=== PATIENT | female | born 1995 | race Two or more races ===

== ENCOUNTER → 2019-06-19 10:50 | Outpatient (BNVA) | payer SELFPAY | PROVIDERS: Family Provider Nurse Practitioner; PCP Family Medicine; Visit Provider Family Medicine | DX: N39.0 Urinary tract infection, site not specified (principal); R52 Pain, unspecified | CPT/HCPCS: 81003 ==

== ENCOUNTER 2019-06-27 03:42 | Emergency (ER) | payer SELFPAY ==
[2019-06-27 03:43] VITALS: BP 156/115; PULSE 100; RESP 16; TEMP 36.8; O2SAT 98; BMI 56.7
--- NOTE | 2019-06-27 03:49 | ED_ITS ---
Entered by Yvonne Block, acting as scribe for Ramin Paulino MD HPI - Female Genitourinary General: Chief complaint: Urogenital-Female Stated complaint: kidney pain Time Seen by Provider: 06/27/19 03:49 Source: patient Mode of arrival: ambulatory History of Present Illness: HPI Narrative: 23 y/o female presents to the ED with complaint of flank pain. Pt states she has had intermittent pain for over a week and constant pain for several days. She was seen at Urgent Care about a week ago and was placed on abx for a kidney infection. She states she has right sided flank pain that radiates down her right leg. She also has some abd discomfort, but she states that is not unusual for her. MD elicited complaint: flank pain Onset (ago): week(s) Location of symptoms: RLQ, low back and flank Severity: mild Consistency: progressively worsening Associated symptoms: Reports abdominal pain; Deny headache(s) or nausea Review of Systems Const: Denies: fever, chills, body aches or change in appetite Eyes: Denies: blurry vision or eye discomfort ENMT: Denies: throat pain or dental pain Card: Denies: chest pain Resp: Denies: shortness of breath GI: Reports: abdominal pain; Denies: nausea, vomiting or diarrhea : Denies: painful urination Musc: Reports: back pain and extremity pain; Denies: neck pain Skin/Breast: Denies: rash Neuro: Denies: headache Psych: Denies: depression Tom/Lymph: Denies: easy bruising All/Imm: Denies: hives [facility] ED PFSH: Social History Smoking and tobacco status: current every day smoker e-cigarettes Alcohol intake: current Alcohol intake frequency: holidays/special occasions only Physical Exam Const: COMMON NORMALS: no apparent distress and oriented x3 NUTRITIONAL APPEARANCE: obese HENMT: COMMON NORMALS: normocephalic and head/scalp atraumatic HEAD & SCALP: normocephalic and atraumatic Eye: COMMON NORMALS: PERRL and EOMs intact bilaterally PUPIL: Yes PERRL Neck/C-Spine: COMMON NORMALS: full ROM and supple Chest: COMMONS NORMALS: inspection of chest normal and palpation of chest normal Resp: COMMON NORMALS: normal respiratory effort, no retractions, no use of accessory muscles and clear to auscultation bilaterally AUSCULTATION: clear to auscultation bilaterally Cardio: COMMON NORMALS: regular rate, regular rhythm and no murmurs RATE: regular rate RHYTHM: regular rhythm GI: COMMON NORMALS: normal to inspection, nondistended, normoactive bowel sounds, soft to palpation, non-tender and no masses PALPATION: Yes soft Back/Pelvis: LUMBAR SPINE/LOWER BACK: Yes lumbar spinal tenderness (Right lower) Extremity: COMMON NORMALS: normal to inspection and full ROM Neuro: COMMON NORMALS: oriented x3, moves all extremities and no focal motor deficits Psych: COMMON NORMALS: mental status grossly normal, thought process normal, cooperative and speech normal SPEECH: Yes normal speech THOUGHT PROCESS: normal thought process Skin: COMMON NORMALS: no rashes or lesions noted and no wounds GENERAL SKIN EXAM: no rashes or lesions noted Course Vital Signs: Vital signs: Vital Signs Temperature 98.2 F 06/27/19 03:43 Pulse Rate 98 06/27/19 05:07 Respiratory Rate 16 06/27/19 05:07 Blood Pressure 144/117 06/27/19 05:07 Pulse Oximetry 94 06/27/19 05:07 MDM - Female MDM Narrative: Medical decision making narrative: Patient presents with low back pain with sciatica. She has no signs of kidney stone and urinalysis here was normal. Patient's blood work is normal as well. She had no CVA tenderness and no abdominal tenderness. Patient has no signs of pleural abscess. Will place patient on Robaxin and Naprosyn. Lab Data: Labs: Lab Results 06/27/19 06/27/19 06/27/19 Range/Units 03:55 03:55 04:01 WBC 11.3 H (4.0-10.0) 10^3/ uL RBC 5.17 (4.1-5.3) 10^6/u L Hgb 12.7 (11.5-15.3) g/dL Hct 39.7 (37.0-47.0) % MCV 76.8 L (81-99) fL MCH 24.6 L (28.0-34.0) pg MCHC 32.0 (30.0-36.0) g/dL RDW 14.1 (12.1-15.1) % Plt Count 327 (130-400) 10^3/c mm MPV 10.6 H (7.4-10.4) fL Neut % (Auto) 61.4 % Lymph % (Auto) 31.8 % [place] % (Auto) 5.5 % Eos % (Auto) 0.7 % Baso % (Auto) 0.3 % Neut # (Auto) 7.0 (1.8-7.7) 10^3/u L Lymph # (Auto) 3.6 (0.8-4.8) 10^3/u L [place] # (Auto) 0.6 (0.2-0.9) 10^3/u L Eos # (Auto) 0.1 (0.0-0.8) 10^3/u L Baso # (Auto) 0.0 (0.0-0.1) 10^3/u L Nucleated RBC % (a uto) 0 % Nucleated RBCs # 0.0 /100WBC Sodium (136-145) mmol/L Potassium (3.5-5.1) mmol/L Chloride (98-107) mmol/L Carbon Dioxide (22-29) mmol/L Anion Gap (5-19) BUN (6-20) mg/dL Creatinine (0.5-0.9) mg/dL GFR Calculation (90-130) mL/min Glucose (65-115) mg/dL Calcium (8.5-10.5) mg/dL Total Bilirubin (0.15-1.2) mg/dL AST (0-32) U/L ALT (0-33) U/L Alkaline Phosphata se (35-105) IU/L Total Protein (6.6-8.7) g/dL Albumin (3.5-5.2) g/dL Globulin (1.3-4.6) g/dL Lipase (13-60) U/L HCG, Qual Negative (Negative) Urine Color Yellow (Yellow) Urine Appearance Sl hazy (CLEAR) Urine pH 6.5 (5-7) Ur Specific Gravit y 1.020 (1.005-1.030) Urine Protein Neg (Negative) Urine Glucose (UA) Norm (Normal) Urine Ketones Negative (Negative) Urine Blood Neg (Negative) Urine Nitrate Negative (Negative) Urine Bilirubin Neg (NEGATIVE) Urine Urobilinogen Norm (Negative) mg/dL Ur Leukocyte Irasema ase 1+ H (Negative) Urine RBC 0-4 H (0-2) /hpf Urine WBC 5-10 H (0-5) /hpf Ur Squamous Epith Cells 5-10 H (0-5) Urine Bacteria 1+ H (NONE) 06/27/19 Range/Units 04:01 WBC (4.0-10.0) 10^3/ uL RBC (4.1-5.3) 10^6/u L Hgb (11.5-15.3) g/dL Hct (37.0-47.0) % MCV (81-99) fL MCH (28.0-34.0) pg MCHC (30.0-36.0) g/dL RDW (12.1-15.1) % Plt Count (130-400) 10^3/c mm MPV (7.4-10.4) fL Neut % (Auto) % Lymph % (Auto) % [place] % (Auto) % Eos % (Auto) % Baso % (Auto) % Neut # (Auto) (1.8-7.7) 10^3/u L Lymph # (Auto) (0.8-4.8) 10^3/u L [place] # (Auto) (0.2-0.9) 10^3/u L Eos # (Auto) (0.0-0.8) 10^3/u L Baso # (Auto) (0.0-0.1) 10^3/u L Nucleated RBC % (a uto) % Nucleated RBCs # /100WBC Sodium 141 (136-145) mmol/L Potassium 4.1 (3.5-5.1) mmol/L Chloride 104 (98-107) mmol/L Carbon Dioxide 26 (22-29) mmol/L Anion Gap 15.1 (5-19) BUN 14 (6-20) mg/dL Creatinine 1.0 H (0.5-0.9) mg/dL GFR Calculation 70.0 L (90-130) mL/min Glucose 99 (65-115) mg/dL Calcium 11.3 H (8.5-10.5) mg/dL Total Bilirubin 0.2 (0.15-1.2) mg/dL AST 19 (0-32) U/L ALT 24 (0-33) U/L Alkaline Phosphata se 82 (35-105) IU/L Total Protein 7.6 (6.6-8.7) g/dL Albumin 4.2 (3.5-5.2) g/dL Globulin 3.4 (1.3-4.6) g/dL Lipase 29 (13-60) U/L HCG, Qual (Negative) Urine Color (Yellow) Urine Appearance (CLEAR) Urine pH (5-7) Ur Specific Gravit y (1.005-1.030) Urine Protein (Negative) Urine Glucose (UA) (Normal) Urine Ketones (Negative) Urine Blood (Negative) Urine Nitrate (Negative) Urine Bilirubin (NEGATIVE) Urine Urobilinogen (Negative) mg/dL Ur Leukocyte Irasema ase (Negative) Urine RBC (0-2) /hpf Urine WBC (0-5) /hpf Ur Squamous Epith Cells (0-5) Urine Bacteria (NONE) Discharge Plan Discharge Patient Disposition: Home, Self-Care Clinical Impression: Low back pain Qualifiers: Chronicity: acute Back pain laterality: right Sciatica presence: with sciatica Sciatica laterality: sciatica of right side Qualified Code(s): M54.41 - Lumbago with sciatica, right side Condition: Stable Prescriptions: New Robaxin-750 750 mg tablet 750 mg PO Q6H Qty: 30 RF: 0 EC-Naprosyn 500 mg tablet,delayed release (DR/EC) 500 mg PO BID PRN (Reason: pain) Qty: 20 RF: 0 Discharge Orders: Discharge Order (Routine); Ordered 06/27/19 Ordered By: Ramin Paulino Referrals: Nahum Núñez FNP [Family Provider] - Cameron Salas [Primary Care Provider] - Discharge Diet: Advance as tolerated Discharge Activity: Resume usual activity Patient Instructions: Sciatica (ED), Lumbar Radiculopathy (ED), Piriformis Syndrome (ED) Coding Level of Care Code ED [employer] for Chg 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 The documentation recorded by the Umair douglas Ashley, accurately reflects the service I personally performed and the decisions made by Lora ellington Korby, MD Jun 27, 2019 03:42
--- NOTE | 2019-06-27 03:55 | PC.NURSE ---
patient states she was seen in a clinic and they told her she had an infection in her kidney and possible kidney stones a week ago. patient states that the pain and discomfort got worse today. Patient states that her right leg and back hurt, and it hurts when she pees. Patient states that she is peeing frequently but the amount of urine is not a lot.
[2019-06-27 04:00] VITALS: BP 166/94; PULSE 99; RESP 16; O2SAT 99
[2019-06-27 04:06] LABS: Basophils % 0.3 %; Eosinophils # 0.1 10^3/uL (0.0-0.8); Eosinophils % 0.7 %; Hematocrit 39.7 % (37.0-47.0); Hemoglobin 12.7 g/dL (11.5-15.3); Lymphocytes # 3.6 10^3/uL (0.8-4.8); Lymphocytes % 31.8 %; Mean Corpuscular Hemoglobin 24.6 pg (28.0-34.0); Mean Corpuscular Volume 76.8 fL (81-99); Mean Platelet Volume 10.6 fL (7.4-10.4); Monocytes # 0.6 10^3/uL (0.2-0.9); Monocytes % 5.5 %; Neutrophils % 61.4 %; Nucleated Red Blood Cells % 0 %; Platelet Count 327 10^3/cmm (130-400); Red Blood Count 5.17 10^6/uL (4.1-5.3); Red Cell Distribution Width 14.1 % (12.1-15.1); White Blood Count 11.3 10^3/uL (4.0-10.0)
[2019-06-27 04:09] LABS: HCG Qualitative Urine. Negative (Negative)
[2019-06-27 04:23] LABS: Alanine Aminotransferase 24 U/L (0-33); Albumin Level 4.2 g/dL (3.5-5.2); Alkaline Phosphatase 82 IU/L (35-105); Anion Gap 15.1 (5-19); Aspartate Amino Transferase 19 U/L (0-32); Blood Urea Nitrogen 14 mg/dL (6-20); Calcium 11.3 mg/dL (8.5-10.5); Carbon Dioxide 26 mmol/L (22-29); Chloride 104 mmol/L (98-107); Globulin 3.4 g/dL (1.3-4.6); Glucose 99 mg/dL (65-115); Lipase 29 U/L (13-60); Potassium 4.1 mmol/L (3.5-5.1); Sodium 141 mmol/L (136-145); Total Bilirubin 0.2 mg/dL (0.15-1.2); Total Protein 7.6 g/dL (6.6-8.7)
[2019-06-27 04:27] VITALS: RESP 16; O2SAT 98
[2019-06-27] MEDS: ondansetron 2 mg/ML SDV 2 mL 4 MG IVP (04:27)
[2019-06-27] MEDS: morphine 4 mg/mL SDV 1 mL IVP (04:27)
[2019-06-27 04:32] VITALS: BP 153/89; PULSE 103; RESP 16; O2SAT 98
[2019-06-27 05:01] LABS: Add Urine Microscopic? YES; Bilirubin Urine Neg (NEGATIVE); Blood Urine Neg (Negative); Glucose Urine UA Norm (Normal); Ketones Urine Negative (Negative); Leukocyte Esterase Urine 1+ (Negative); Nitrate Urine Negative (Negative); Protein Urine Neg (Negative); Urine Appearance SL Hazy (CLEAR); Urine Color Yellow (Yellow); Urobilinogen Urine Norm (Negative); pH Urine 6.5 (5-7)
[2019-06-27 05:02] LABS: RBC Urine 0-4 /hpf (0-2)
[2019-06-27 05:03] LABS: Add Urine Culture? No; Bacteria Urine 1+
[2019-06-27 05:07] VITALS: BP 144/117; PULSE 98; RESP 16; O2SAT 94
[2019-06-27] MEDS: dexamethasone 10 mg/mL INJ IVP (05:22)
[2019-06-27 05:26] VITALS: BP 154/103; PULSE 91; RESP 16; O2SAT 97
== END 2019-06-27 05:26 | disposition home or self-care (01) ==
PROVIDERS: Emergency Provider Emergency Medicine; Family Provider Nurse Practitioner; PCP Family Medicine
DX: M54.5 Low back pain (principal); E66.9 Obesity, unspecified; Z68.43 Body mass index [BMI] 50.0-59.9, adult; F17.210 Nicotine dependence, cigarettes, uncomplicated
CPT/HCPCS: 36415; 80053; 81001; 81025; 83690; 85025; 96374; 96375; 99283; J1100; J2270; J2405

== ENCOUNTER → 2019-08-02 13:02 | Outpatient (BNVA) | payer SELFPAY | PROVIDERS: Family Provider Nurse Practitioner; PCP Family Medicine; Visit Provider Family Medicine | DX: S93.492A Sprain of other ligament of left ankle, initial encounter (principal); W18.40XA Slipping, tripping and stumbling without falling, unspecified, initial encounter; F17.290 Nicotine dependence, other tobacco product, uncomplicated; Z71.89 Other specified counseling | CPT/HCPCS: 73610 ==

== ENCOUNTER 2019-10-29 04:45 | Emergency (ER) | payer SELFPAY ==
[2019-10-29 04:55] VITALS: BP 154/84; PULSE 112; RESP 20; TEMP 36.7; O2SAT 98; BMI 56.7
--- NOTE | 2019-10-29 05:20 | W.ED.FEMALGU ---
HPI - Female Genitourinary General: Chief complaint: Urogenital-Female Stated complaint: LRQ BACK PAIN Time Seen by Provider: 10/29/19 05:07 History of Present Illness: HPI Narrative: 24-year-old female who woke up with right-sided flank and low back pain. She has had mild dysuria. She denies fever. She says she has been nauseated. She has a history of kidney infection. MD elicited complaint: dysuria and flank pain Location of symptoms: low back and flank (Right) Severity: moderate Female Urogenital Radiation: Non-Radiating Quality of pain: cramping and sharp Consistency: constant Vaginal discharge: none Vaginal bleeding: none Urinary symptoms: Dysuria and Flank Pain Relieving factors: none Associated symptoms: Reports nausea; Deny fevers/chills, headache(s) or vaginal discharge Patient : No Review of Systems Const: Denies: fever(s) or chills ENMT: Denies: swelling of lips/tongue or sinus pain Card: Denies: chest pain, palpitations or irregular heart rhythm Resp: Denies: dyspnea, non-productive cough or wheezing GI: Reports: nausea : Denies: vaginal discharge Musc: Reports: back pain; Denies: neck pain or joint redness Skin/Breast: Denies: rash Neuro: Denies: headache(s), dizziness or vertigo Psych: Denies: anxiety PFSH ED PFSH: Social History Smoking and tobacco status: current every day smoker e-cigarettes Alcohol intake: current Alcohol intake frequency: holidays/special occasions only Physical Exam Const: GENERAL APPEARANCE: well developed ORIENTATION/CONSCIOUSNESS: Yes oriented to person, Yes oriented to place and Yes oriented to time HENMT: COMMON NORMALS: normocephalic, external ears normal and Normal external nose present HEAD & SCALP: normocephalic FACE & SINUS: normal facial exam NOSE: Normal external nose present and No nasal discharge present EXTERNAL EAR: Yes external ears normal MOUTH: tongue normal Eye: COMMON NORMALS: EOMs intact bilaterally and conjunctivae normal EYELID: eyelids normal CONJUNCTIVA: Yes conjunctivae normal Neck/C-Spine: GENERAL: No tracheal deviation Chest: COMMONS NORMALS: normal inspection of the chest CHEST: No tenderness Resp: COMMON NORMALS: clear to auscultation bilaterally EFFORT & INSPECTION: No tachypneic, No respiratory distress, No retractions, No uses accessory muscles and No tracheal deviation AUSCULTATION: clear to auscultation bilaterally, no rhonchi, no wheezes and lung sounds not diminished Cardio: COMMON NORMALS: regular rate and regular rhythm RATE: regular rate RHYTHM: regular rhythm HEART SOUNDS: no murmurs PERIPHERAL PULSES: radial pulses present GI: INSPECTION: No abdominal distension AUSCULTATION: No Hyperactive bowel sounds present and No Hypoactive bowel sounds present PALPATION: No Guarding due to palpation present (GI) and No Rigid due to palpation PERCUSSION: no dullness to percussion and no tympanic to percussion : BLADDER/KIDNEY EXAM: Yes CVA tenderness on the right Back/Pelvis: GENERAL BACK: Yes CVA tenderness Neuro: SENSORIUM/ORIENTATION: Yes oriented to person, Yes oriented to place and Yes oriented to time Psych: COMMON NORMALS: mental status grossly normal Skin: COMMON NORMALS: no rashes or lesions noted GENERAL SKIN EXAM: no rashes or lesions noted Course Vital Signs: Vital signs: Vital Signs Temperature 98.1 F 10/29/19 04:55 Pulse Rate 85 10/29/19 06:22 Respiratory Rate 20 H 10/29/19 06:22 Blood Pressure 119/99 10/29/19 06:22 Pulse Oximetry 99 10/29/19 06:22 MDM - Female MDM Narrative: Medical decision making narrative: 24-year-old female with a history of pyelonephritis in the past. She presents with right-sided flank and back pain. She has some mild dysuria. She does not have a fever. She has not been vomiting. She is received a fluid bolus, and is getting IV Rocephin for a urinary tract infection by urinalysis. She has a white blood cell count of 12 with no left shift. Her renal function is normal. CT stone protocol is pending looking for renal abscess versus stone. If the CT does not reveal 1 of these, she will be sent home on cefdinir for coverage, pain and antiemetic medication. Lab Data: Labs: Lab Results 10/29/19 10/29/19 10/29/19 Range/Units 04:55 05:30 05:30 WBC 11.9 H (4.0-10.0) 10^3/ uL RBC 4.89 (4.1-5.3) 10^6/u L Hgb 11.4 L (11.5-15.3) g/dL Hct 37.5 (37.0-47.0) % MCV 76.7 L (81-99) fL MCH 23.3 L (28.0-34.0) pg MCHC 30.4 (30.0-36.0) g/dL RDW 15.9 H (12.1-15.1) % Plt Count 344 (130-400) 10^3/c mm MPV 11.0 H (7.4-10.4) fL Neut % (Auto) 66.1 % Lymph % (Auto) 28.0 % [place] % (Auto) 4.4 % Eos % (Auto) 0.8 % Baso % (Auto) 0.3 % Neut # (Auto) 7.8 H (1.8-7.7) 10^3/u L Lymph # (Auto) 3.3 (0.8-4.8) 10^3/u L [place] # (Auto) 0.5 (0.2-0.9) 10^3/u L Eos # (Auto) 0.1 (0.0-0.8) 10^3/u L Baso # (Auto) 0.0 (0.0-0.1) 10^3/u L Nucleated RBC % (a uto) 0 % Nucleated RBCs # 0.0 /100WBC Sodium 139 (136-145) mmol/L Potassium 3.5 (3.5-5.1) mmol/L Chloride 105 (98-107) mmol/L Carbon Dioxide 23 (22-29) mmol/L Anion Gap 14.5 (5-19) BUN 9 (6-20) mg/dL Creatinine 0.6 (0.5-0.9) mg/dL GFR Calculation 125.0 (90-130) mL/min Glucose 124 H (65-115) mg/dL Calculated Osmolal ity 285 (285-295) mOsm/k g Calcium 10.1 (8.5-10.5) mg/dL Total Bilirubin 0.2 (0.15-1.2) mg/dL AST 21 (0-32) U/L ALT 28 (0-33) U/L Alkaline Phosphata se 72 (35-105) IU/L Total Protein 6.7 (6.6-8.7) g/dL Albumin 3.9 (3.5-5.2) g/dL Globulin 2.8 (1.3-4.6) g/dL HCG, Qual (Negative) Urine Color Yellow (Yellow) Urine Appearance Hazy A (CLEAR) Urine pH 6.5 (5-7) Ur Specific Gravit y 1.020 (1.005-1.030) Urine Protein Neg (Negative) Urine Glucose (UA) Norm (Normal) Urine Ketones Negative (Negative) Urine Blood Neg (Negative) Urine Nitrate Negative (Negative) Urine Bilirubin Neg (NEGATIVE) Urine Urobilinogen Norm (Negative) mg/dL Ur Leukocyte Irasema ase 2+ H (Negative) Urine RBC 0-4 H (0-2) /hpf Urine WBC 25-40 H (0-5) /hpf Ur Squamous Epith Cells 15-25 H (0-5) Amorphous Sediment 1+ Urine Bacteria 2+ H (NONE) 07/05/20 Range/Units 05:30 WBC (4.0-10.0) 10^3/ uL RBC (4.1-5.3) 10^6/u L Hgb (11.5-15.3) g/dL Hct (37.0-47.0) % MCV (81-99) fL MCH (28.0-34.0) pg MCHC (30.0-36.0) g/dL RDW (12.1-15.1) % Plt Count (130-400) 10^3/c mm MPV (7.4-10.4) fL Neut % (Auto) % Lymph % (Auto) % [place] % (Auto) % Eos % (Auto) % Baso % (Auto) % Neut # (Auto) (1.8-7.7) 10^3/u L Lymph # (Auto) (0.8-4.8) 10^3/u L [place] # (Auto) (0.2-0.9) 10^3/u L Eos # (Auto) (0.0-0.8) 10^3/u L Baso # (Auto) (0.0-0.1) 10^3/u L Nucleated RBC % (a uto) % Nucleated RBCs # /100WBC Sodium (136-145) mmol/L Potassium (3.5-5.1) mmol/L Chloride (98-107) mmol/L Carbon Dioxide (22-29) mmol/L Anion Gap (5-19) BUN (6-20) mg/dL Creatinine (0.5-0.9) mg/dL GFR Calculation (90-130) mL/min Glucose (65-115) mg/dL Calculated Osmolal ity (285-295) mOsm/k g Calcium (8.5-10.5) mg/dL Total Bilirubin (0.15-1.2) mg/dL AST (0-32) U/L ALT (0-33) U/L Alkaline Phosphata se (35-105) IU/L Total Protein (6.6-8.7) g/dL Albumin (3.5-5.2) g/dL Globulin (1.3-4.6) g/dL HCG, Qual Negative (Negative) Urine Color (Yellow) Urine Appearance (CLEAR) Urine pH (5-7) Ur Specific Gravit y (1.005-1.030) Urine Protein (Negative) Urine Glucose (UA) (Normal) Urine Ketones (Negative) Urine Blood (Negative) Urine Nitrate (Negative) Urine Bilirubin (NEGATIVE) Urine Urobilinogen (Negative) mg/dL Ur Leukocyte Irasema ase (Negative) Urine RBC (0-2) /hpf Urine WBC (0-5) /hpf Ur Squamous Epith Cells (0-5) Amorphous Sediment Urine Bacteria (NONE) Discharge Plan Discharge Patient Disposition: Home, Self-Care Clinical Impression: Pyelonephritis Condition: Stable Prescriptions: New cefdinir 300 mg capsule 300 mg PO Q12H 7 Days Qty: 14 RF: 0 Zofran 4 mg tablet 4 mg PO Q6H PRN (Reason: nausea and vomiting) Qty: 10 RF: 0 [place] 5-325 mg tablet 1 tab PO Q6H PRN (Reason: pain) Qty: 10 RF: 0 No Action omeprazole 40 mg capsule,delayed release(DR/EC) 40 mg PO DAILY 84 Days Qty: 90 RF: 0 sertraline [Zoloft] 100 mg tablet 100 mg PO DAILY Qty: 30 RF: 2 trazodone 50 mg tablet 100 mg PO .HS Qty: 60 RF: 1 EC-Naprosyn 500 mg tablet,delayed release (DR/EC) 500 mg PO BID PRN (Reason: pain) Qty: 20 RF: 0 Discharge Orders: Discharge Order (Routine); Ordered 10/29/19 Ordered By: Og Juárez Referrals: Cameron Salas [Primary Care Provider] - 4-7 days Discharge Diet: Advance as tolerated Discharge Activity: Increase activity as tolerated Patient Instructions: Acute Pyelonephritis (ED) Activity Restrictions/Additional Instructions: Return for continued fever greater than 100 despite 2-3 doses of antibiotics, vomiting liquids or medications, uncontrolled pain, other concerning symptoms. Medications as directed. Coding Level of Care Code ED Supervisor [employer] for Chg 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
--- NOTE | 2019-10-29 05:21 | CTR_ITS ---
PROCEDURE INFORMATION: Exam: CT Abdomen And Pelvis Without Contrast Exam date and time: 10/29/2019 5:38 AM Age: 24 years old Clinical indication: Abdominal pain; Flank; Right; Additional info: R flank pain TECHNIQUE: Imaging protocol: Computed tomography of the abdomen and pelvis without contrast. Radiation optimization: All CT scans at this facility use at least one of these dose optimization techniques: automated exposure control; mA and/or kV adjustment per patient size (includes targeted exams where dose is matched to clinical indication); or iterative reconstruction. COMPARISON: No relevant prior studies available. RADIATION DOSE METRICS: Total DLP (mGy-cm): 1935.89 FINDINGS: Lungs: The lung bases are clear. Liver: Unremarkable. Gallbladder and bile ducts: No definite gallbladder abnormality by CT. Ultrasound could be more sensitive for detecting gallstones, if clinically needed. No biliary tree dilation. Pancreas: Unremarkable. Spleen: Unremarkable. Adrenals: Unremarkable. Kidneys and ureters: No hydronephrosis of either kidney. No visible renal or ureteral calculus. No perinephric fluid. Normal appearance of the kidneys on noncontrast CT does not entirely exclude the diagnosis of acute pyelonephritis. Please correlate with clinical and laboratory evaluation. Stomach and bowel: There are no CT findings to strongly suggest diverticulitis. Appendix: The appendix is visualized and appears normal. Intraperitoneal space: No free air, generalized ascites, or bowel distention. Vasculature: No evidence for abdominal aortic aneurysm. Lymph nodes: No retroperitoneal adenopathy. Bladder: Possibly some mild diffuse urinary bladder wall thickening. While nonspecific, this could indicate evidence for cystitis. Please correlate clinically. No visible calculus in the urinary bladder. Reproductive: Small amount of cul-de-sac fluid. No definite abnormal ovarian/adnexal cyst or mass by CT. Bones/joints: No significant acute finding. Soft tissues: No significant acute finding. CT/CT kidney stone [id number] IMPRESSION: 1. No hydronephrosis of either kidney. No visible renal or ureteral calculus. 2. No perinephric fluid, see above discussion. 3. Possible mild urinary bladder wall thickening, see above. 4. Normal appendix. 5. Unremarkable gallbladder by CT. 6. Small amount of cul-de-sac fluid. No definite abnormal ovarian/adnexal cyst or mass by CT. 7. Other findings discussed above. Radiation Dose CTDIVOL = (mGy): DLP = 1935.89 (mGy-cm)
[2019-10-29 05:30] VITALS: RESP 19
[2019-10-29] MEDS: morphine 4 mg/mL SDV 1 mL IVP (05:30)
[2019-10-29] MEDS: sodium chloride 0.9% 1,000 ML 999 ML IV (05:32)
[2019-10-29 05:33] VITALS: BP 169/81; PULSE 104; RESP 19; O2SAT 98
[2019-10-29 05:43] LABS: Add Urine Microscopic? YES; Bilirubin Urine Neg (NEGATIVE); Blood Urine Neg (Negative); Glucose Urine UA Norm (Normal); Ketones Urine Negative (Negative); Leukocyte Esterase Urine 2+ (Negative); Nitrate Urine Negative (Negative); Protein Urine Neg (Negative); Urine Appearance Hazy (CLEAR); Urine Color Yellow (Yellow); Urobilinogen Urine Norm (Negative); pH Urine 6.5 (5-7)
[2019-10-29 05:44] LABS: RBC Urine 0-4 /hpf (0-2)
[2019-10-29 05:45] LABS: Add Urine Culture? No; Amorphous Sediment Urine 1+; Bacteria Urine 2+; Squamous Epithelial Cell Urine 15-25 (0-5); WBC Urine 25-40 /hpf (0-5)
[2019-10-29 05:47] LABS: Basophils % 0.3 %; Eosinophils # 0.1 10^3/uL (0.0-0.8); Eosinophils % 0.8 %; Hematocrit 37.5 % (37.0-47.0); Hemoglobin 11.4 g/dL (11.5-15.3); Lymphocytes # 3.3 10^3/uL (0.8-4.8); Mean Corpuscular HGB Conc 30.4 g/dL (30.0-36.0); Mean Corpuscular Hemoglobin 23.3 pg (28.0-34.0); Mean Corpuscular Volume 76.7 fL (81-99); Monocytes # 0.5 10^3/uL (0.2-0.9); Monocytes % 4.4 %; Neutrophils # 7.8 10^3/uL (1.8-7.7); Neutrophils % 66.1 %; Nucleated Red Blood Cells % 0 %; Platelet Count 344 10^3/cmm (130-400); Red Blood Count 4.89 10^6/uL (4.1-5.3); Red Cell Distribution Width 15.9 % (12.1-15.1); White Blood Count 11.9 10^3/uL (4.0-10.0)
[2019-10-29 05:59] LABS: HCG, Serum Qual Negative (Negative)
[2019-10-29] MEDS: cefTRIAXone 1,000 MG in sodium chloride 0.9% (plus) 50 ML 100 MG IV (06:04)
[2019-10-29 06:05] LABS: Alanine Aminotransferase 28 U/L (0-33); Albumin Level 3.9 g/dL (3.5-5.2); Alkaline Phosphatase 72 IU/L (35-105); Anion Gap 14.5 (5-19); Aspartate Amino Transferase 21 U/L (0-32); Blood Urea Nitrogen 9 mg/dL (6-20); Calcium 10.1 mg/dL (8.5-10.5); Carbon Dioxide 23 mmol/L (22-29); Chloride 105 mmol/L (98-107); Globulin 2.8 g/dL (1.3-4.6); Glucose 124 mg/dL (65-115); Osmolality Calculated 285 mOsm/kg (285-295); Potassium 3.5 mmol/L (3.5-5.1); Sodium 139 mmol/L (136-145); Total Bilirubin 0.2 mg/dL (0.15-1.2); Total Protein 6.7 g/dL (6.6-8.7)
[2019-10-29 06:22] VITALS: BP 119/99; PULSE 85; RESP 20; O2SAT 99
[2019-10-29] MEDS: ketorolac 30 mg/mL INJ IVP (06:39)
[2019-10-29 06:50] LABS: C Reactive Protein 8.4 mg/L (0.0-4.9)
[2019-10-29 07:31] VITALS: BP 149/80; PULSE 85; RESP 18; O2SAT 97
== END 2019-10-29 07:20 | disposition home or self-care (01) ==
PROVIDERS: Emergency Provider Emergency Medicine; PCP Family Medicine
DX: N12 Tubulo-interstitial nephritis, not specified as acute or chronic (principal); F17.290 Nicotine dependence, other tobacco product, uncomplicated
CPT/HCPCS: 12345; 74176; 80053; 81001; 81003; 84703; 85025; 86140; 96360; 96361; 96365; 96375; 99283; J0696; J1885; J2270; J7030

== ENCOUNTER 2020-01-10 02:00 | Emergency (ER) | payer OTHER, SELFPAY ==
[2020-01-10 02:03] VITALS: BP 178/93; PULSE 86; RESP 17; TEMP 36.3; O2SAT 97; BMI 56.7
--- NOTE | 2020-01-10 02:08 | XR_ITS ---
WS: [id number] EXAM: AP CHEST: PORTABLE UPRIGHT DATE OF EXAM: 01/10/2020, 0222 hours COMPARISON: NONE HISTORY: Patient is 24 years old with cough, fever for the last 2 days. FINDINGS: The cardiac silhouette is normal in size. The mediastinal contours are normal. The pulmonary vas cularity is normal. The lungs are clear of infiltrate. There is no effusion or pneumothorax. No ac ambreen bony abnormality is seen. XR/XR chest 1V portable [id number] IMPRESSION: No acute pulmonary disease.
--- NOTE | 2020-01-10 02:08 | W.ED.GENADLT ---
HPI - General Adult General: Chief complaint: General Medical Stated complaint: covid symptoms Time Seen by Provider: 01/10/20 02:08 History of Present Illness: HPI narrative: Patient is a 24-year-old female comes to the ED with cough, sore throat, nasal drainage and congestion and fever. Patient denies any asthma or other lung issues. Symptoms started approximately 3 days ago. Denies fever she had at home was 100.5. Patient is also having some nausea and episodes of emesis as well. She currently has some nausea while here in the ED. Patient had contact with a positive COVID-19 patient. Associated symptoms: Reports nausea and vomiting; Deny chest pain, dyspnea, headache(s), rash or palpitations Review of Systems Const: Reports: fever(s); Denies: chills or fatigue Eyes: Denies: change in vision or eye discomfort ENMT: Reports: throat pain, nasal discharge and nasal congestion; Denies: odynophagia Card: Denies: chest pain, palpitations, edema, swelling of feet/ankles, dyspnea on exertion or orthopnea Resp: Reports: non-productive cough; Denies: dyspnea or productive cough GI: Reports: nausea and vomiting; Denies: abdominal pain, diarrhea, constipation or hematochezia : Denies: flank pain, dysuria or hematuria Musc: Denies: neck pain, back pain or extremity swelling Skin/Breast: Denies: rash or new lesions Neuro: Denies: headache(s), numbness in extremities or weakness in extremities PFS ED PFSH: Social History Smoking and tobacco status: current every day smoker e-cigarettes Alcohol intake: current Alcohol intake frequency: holidays/special occasions only Female Reproductive History: Date of last menstrual period: 01/03/20 Physical Exam Const: COMMON NORMALS: no acute distress, patient oriented x3, healthy appearing and alert GENERAL APPEARANCE: cooperative and comfortable NUTRITIONAL APPEARANCE: obese morbidly obese HENMT: COMMON NORMALS: normocephalic and Normal external nose present HEAD & SCALP: normocephalic NOSE: Normal external nose present MOUTH: Normal oral and palatal mucosa present THROAT: uvula midline, abnormal tonsil bilateral hypertrophy 2+ and posterior oropharynx abnormal erythema; no exudates Eye: COMMON NORMALS: Equal, round and reactive pupils present and conjunctivae normal CONJUNCTIVA: Yes conjunctivae normal PUPIL: Yes Equal, round and reactive pupils present Neck/C-Spine: COMMON NORMALS: supple GENERAL: Yes normal visual inspection Resp: COMMON NORMALS: normal respiratory effort, No retractions, No use of accessory muscles and clear to auscultation bilaterally AUSCULTATION: clear to auscultation bilaterally Cardio: COMMON NORMALS: regular rate, regular rhythm, S1 normal heart sound present, S2 normal heart sound present, No gallops present (Cardio), No clicks present (Cardio), No murmurs present (Cardio) and Peripheral pulses 2+ throughout RATE: regular rate RHYTHM: regular rhythm HEART SOUNDS: S1 normal heart sound present and S2 normal heart sound present PERIPHERAL PULSES: Peripheral pulses 2+ throughout GI: COMMON NORMALS: Normal to inspection, nondistended, normoactive bowel sounds present, Soft to palpation, non-tender and no masses PALPATION: Yes Soft to palpation : COMMON NORMALS: Yes no CVA tenderness BLADDER/KIDNEY EXAM: Yes no CVA tenderness Back/Pelvis: COMMON NORMALS: no CVA tenderness Extremity: COMMON NORMALS: normal to inspection Neuro: COMMON NORMALS: patient oriented x3 and moves all extremities SENSORIUM/ORIENTATION: Yes alert Skin: COMMON NORMALS: no rashes or lesions noted GENERAL SKIN EXAM: no rashes or lesions noted and dry skin Course Reevaluation(s): Reevaluation #1: Went and saw patient after she had received Zofran IM. She reports improving nausea and is able to keep p.o. fluids down. Time: 03:05 Vital Signs: Vital signs: Vital Signs Temperature 97.3 F L 01/10/20 02:03 Pulse Rate 86 01/10/20 02:03 Respiratory Rate 17 01/10/20 02:03 Blood Pressure 178/93 01/10/20 02:03 Pulse Oximetry 97 01/10/20 02:03 MDM - General Adult MDM Narrative: Medical decision making narrative: Patient is a 24-year-old female comes to the ED with nasal congestion, cough, fever, sore throat, nausea vomiting. Symptoms started 3 days ago the patient says she has had contact with positive COVID patient. Physical exam is unremarkable patient appears to be in no acute distress or pain. Lungs are clear to auscultation bilaterally. Chest x-ray showed no acute lung findings or infiltrates. Strep test was negative. COVID testing was performed and pending results. Patient was given IM Zofran while here in the ED and nausea improved and she was able to keep p.o. fluids down. Patient discharged and told to self quarantine for the next 3 to possibly 12 days pending COVID testing results. I told patient to contact [facility] [place] in the next 2 to 3 days to find out COVID test results. Symptom management and take prescribed Zofran as needed for nausea. Drink plenty of fluids and stay hydrated. Tylenol or ibuprofen for fevers. Return to ED precautions given. Patient understood agree with plan. Lab Data: Attestation: I reviewed the patient's lab results. Lab results narrative: Strep test negative. Labs: Lab Results 01/10/20 Range/Units 02:37 Group A Strep Rapi d Negative (Negative) Imaging Data^: CXR: Attestation: I personally reviewed and interpreted this imaging study as follows: My impression: Chest x-ray showed no acute lung findings or infiltrates seen. Pending radiology report. Discharge Plan Discharge Patient Disposition: Home Clinical Impression: URI with cough and congestion, Encounter for screening laboratory testing for COVID-19 virus Condition: Stable Prescriptions: New ondansetron 4 mg tablet,disintegrating 4 mg PO Q8H Qty: 20 RF: 0 No Action omeprazole 40 mg capsule,delayed release(DR/EC) 40 mg PO DAILY 84 Days Qty: 90 RF: 0 sertraline [Zoloft] 100 mg tablet 100 mg PO DAILY Qty: 30 RF: 2 trazodone 50 mg tablet 100 mg PO .HS Qty: 60 RF: 1 Zofran 4 mg tablet 4 mg PO Q6H PRN (Reason: nausea and vomiting) Qty: 10 RF: 0 Spring 5-325 mg tablet 1 tab PO Q6H PRN (Reason: pain) Qty: 10 RF: 0 EC-Naprosyn 500 mg tablet,delayed release (DR/EC) 500 mg PO BID PRN (Reason: pain) Qty: 20 RF: 0 Discharge Orders: Discharge Order (Routine); Ordered 01/10/20 Ordered By: Juanjose Barnes Referrals: Cameron Salas [Primary Care Provider] - Discharge Diet: Advance as tolerated Discharge Activity: Increase activity as tolerated Patient Instructions: Upper Respiratory Infection (ED), Viral Syndrome (ED), Cold Symptoms (ED) Activity Restrictions/Additional Instructions: Follow-up with medical provider as directed in 7-10 days. Take ibuprofen or Tylenol as needed for fevers. Take Zofran as needed for nausea and drink plenty of fluids and stay hydrated. Self quarantine for the next 3 days or up to 12 days pending COVID test results. Contact [facility] in the next 2 to 3 days to find out COVID testing results. Symptom management and take [id number] cold medications to help with nasal congestion and cough. Return to the ER or your medical provider if condition worsens. Please read and understand discharge instructions. If any questions, please ask. 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
[2020-01-10] MEDS: ondansetron 2 mg/ML SDV 2 mL 4 MG IM (02:41)
[2020-01-10 03:10] LABS: Rapid Strep A Test Negative (Negative)
[2020-01-10 03:35] VITALS: BP 143/87; PULSE 76; RESP 18; O2SAT 98
[2020-01-11 20:47] LABS: Quest SARS-CoV-2 RNA NOT DETECTED (NOT DETECTED)
--- NOTE | 2020-01-12 08:43 | PC.NURSE ---
Pt called and notified of negative COVID result.
== END 2020-01-10 03:37 | disposition home or self-care (01) ==
PROVIDERS: Emergency Provider Physician Assistant; PCP Family Medicine
DX: J06.9 Acute upper respiratory infection, unspecified (principal); F17.290 Nicotine dependence, other tobacco product, uncomplicated; Z11.59 Encounter for screening for other viral diseases
CPT/HCPCS: 12345; 71045; 87081; 87635; 87880; 96372; 99282; 99283; J2405

== ENCOUNTER 2020-05-06 00:40 | Emergency (ER) | payer SELFPAY ==
[2020-05-06 00:43] VITALS: BP 158/84; PULSE 90; RESP 18; TEMP 36.2; O2SAT 100; BMI 56.7
--- NOTE | 2020-05-06 00:53 | XRR_ITS ---
PROCEDURE INFORMATION: Exam: XR Chest, 2 Views Exam date and time: 05/06/2020 1:06 AM Age: 24 years old Clinical indication: Cough; Additional info: Cough and congestion TECHNIQUE: Imaging protocol: XR of the chest Views: 2 views. COMPARISON: CR XR chest 1V portable [id number] 01/10/2020 2:14 AM FINDINGS: Lungs: Unremarkable. No consolidation. Pleural space: Unremarkable. No pleural effusion. No pneumothorax. Heart/Mediastinum: Unremarkable. No cardiomegaly. Bones/joints: Unremarkable. XR/XR chest 2V* [id number] IMPRESSION: No acute findings.
--- NOTE | 2020-05-06 01:10 | ECG_ITS ---
[facility] Test Date: 2020-05-06 Pat Name: Shoaib Lang Department: Room: Gender: Female Store Leader: : 1995 Requested By: Carlyn Aldridge Order Number: [id number] Santy MD: Mervat Ceja M.D. Measurements Intervals [place] Rate: 94 P: 36 MA: 180 QRS: 13 QRSD: 118 T: 3 QT: 349 QTc: 437 Interpretive Statements SINUS RHYTHM MODERATE INTRAVENTRICULAR CONDUCTION DELAY [110+ ms QRS DURATION] MINIMAL VOLTAGE CRITERIA FOR LVH, CONSIDER NORMAL VARIANT [MEETS CRITERIA IN ONE OF: R(aVL), S(V1), R(V5), R(V5/V6)+S(V1)] NONSPECIFIC ST ELEVATION [0.05+ mV ST ELEVATION] No previous ECG available for comparison Electronically Signed On 05-06-2020 20:31:53 POLICEWOMAN by Mervat Ceja M.D. [id number]
--- NOTE | 2020-05-06 01:12 | W.ED.CHESTPA ---
HPI - Chest Pain General: Chief Complaint: Upper Respiratory Infection Stated Complaint: sharp pain in chest. white thing in throat w/pain Time Seen by Provider: 05/06/20 00:44 History of Present Illness: HPI narrative: 24 year old female presents to the ED with complaints of sharp chest pain in the middle of her chest x 7 days, has increased in frequency, does not radiate, has not attempted OTC use of medication for the pain. Reports onset of cough 2 days ago, non-productive. She denies fever or chills, denies n/v/d - states intake of ETOH < 24 hours with increased pain in the chest. She denies heartburn or GI symptoms; yet reports abdominal pain with intake of ETOH. Denies abdominal pain upon exam. Reports stopped sertraline, trazodone and omeprazole several months ago. MD complaint: chest pain Onset (ago): day(s) (7) Timing of current episode: constant and increasing Prior episodes: Yes Onset: other (taking deep breath in) Pain location: epigastric Pain radiation: none Severity: moderate Quality: sharp Relieving factors: nothing Exacerbating factors: nothing Context: other (ETOH intake) Associated symptoms: Deny abdominal pain, diaphoresis, dyspnea, fever(s), nausea, palpitations or vomiting Treatment prior to arrival: none Review of Systems General: Reports: 10 or more systems reviewed and unremarkable except in HPI and below Const: Denies: fever(s), chills, body aches, fatigue, malaise or diaphoresis Eyes: Denies: blurry vision or eye redness ENMT: Reports: other; Denies: throat pain, uvular edema, dental pain, disequilibrium, nasal discharge or nasal congestion Card: Reports: chest pain; Denies: palpitations, irregular heart rhythm, lightheadedness, dyspnea on exertion or orthopnea Resp: Reports: non-productive cough and pain on inspiration; Denies: dyspnea, productive cough, wheezing, hemoptysis or chest congestion GI: Denies: abdominal pain, nausea, vomiting, dysphagia, heartburn, diarrhea or constipation : Denies: difficulty voiding, dysuria or urinary urgency Musc: Denies: neck pain, back pain, joint pain, joint warmth or joint stiffness Skin/Breast: Denies: rash, pruritus, erythema or changing lesions Neuro: Denies: headache(s), weakness in extremities or behavioral changes Psych: Denies: anxiety or depression Tom/Lymph: Denies: easy bruising PFSH ED PFSH: Social History Smoking and tobacco status: current every day smoker e-cigarettes Alcohol intake: current Alcohol intake frequency: holidays/special occasions only Female Reproductive History: Date of last menstrual period: 01/03/20 Physical Exam Const: COMMON NORMALS: no acute distress, patient oriented x3, healthy appearing, alert and well nourished GENERAL APPEARANCE: cooperative, comfortable, well kempt, well developed and well hydrated; not in distress, not anxious, not ill appearing and not diaphoretic NUTRITIONAL APPEARANCE: obese ORIENTATION/CONSCIOUSNESS: Yes awake, Yes oriented to person, Yes oriented to place and Yes oriented to time HENMT: COMMON NORMALS: normocephalic, atraumatic, EAC's normal, Normal external nose present and moist oral mucous membranes HEAD & SCALP: normal to inspection, normocephalic and atraumatic FACE & SINUS: normal facial exam and face symmetric NOSE: Normal external nose present EXTERNAL AUDITORY CANAL: EAC's normal MOUTH: Normal oral and palatal mucosa present, lip normal and tongue normal (tongue piercing present) THROAT: posterior oropharynx normal, tonsils normal and uvula midline; no uvular edema Eye: COMMON NORMALS: Equal, round and reactive pupils present and EOMs intact bilaterally GENERAL EYE: appearance normal, both eyes and all related structures PUPIL: Yes Equal, round and reactive pupils present Neck/C-Spine: COMMON NORMALS: full ROM and no lymphadenopathy GENERAL: Yes normal visual inspection and Yes trachea midline CERVICAL SPINE: Yes cervical ROM normal Lymph: LYMPHATIC: no lymphadenopathy noted Chest: COMMONS NORMALS: normal inspection of the chest and normal palpation of entire chest wall CHEST: No localized rib tenderness with anteroposterior compression Resp: COMMON NORMALS: normal respiratory effort, No retractions, No use of accessory muscles and clear to auscultation bilaterally EFFORT & INSPECTION: Yes able to speak in complete sentences AUSCULTATION: clear to auscultation bilaterally Cardio: COMMON NORMALS: regular rate, regular rhythm, S1 normal heart sound present, S2 normal heart sound present and Peripheral pulses 2+ throughout RATE: regular rate RHYTHM: regular rhythm HEART SOUNDS: S1 normal heart sound present and S2 normal heart sound present PERIPHERAL PULSES: Peripheral pulses 2+ throughout GI: COMMON NORMALS: Normal to inspection, nondistended, normoactive bowel sounds present, Soft to palpation and non-tender INSPECTION: Yes normal to inspection, No abdominal distension, Yes central obesity and No visible herniation PALPATION: Yes Soft to palpation : COMMON NORMALS: Yes no CVA tenderness BLADDER/KIDNEY EXAM: Yes no CVA tenderness Back/Pelvis: COMMON NORMALS: no CVA tenderness, thoracic and lumbar spine normal to inspection, no thoracic nor lumbar tenderness and thoraco-lumbar ROM normal Extremity: COMMON NORMALS: normal to inspection, full ROM, capillary refill normal, no clubbing, cyanosis or edema, no calf tenderness and no pedal edema GENERAL: Yes normal exam except as noted Neuro: COMMON NORMALS: patient oriented x3 and no focal motor deficits SENSORIUM/ORIENTATION: Yes alert, Yes oriented to person, Yes oriented to place and Yes oriented to time Psych: COMMON NORMALS: mental status grossly normal, Normal thought process present and cooperative APPEARANCE: Yes well kempt ACTIVITY/MOTOR BEHAVIOR: Yes appropriate eye contact THOUGHT PROCESS: Normal thought process present Skin: COMMON NORMALS: no rashes or lesions noted and turgor normal GENERAL SKIN EXAM: no rashes or lesions noted and turgor normal Course Vital Signs: Vital signs: Vital Signs Temperature 97.2 F L 05/06/20 00:43 Pulse Rate 90 05/06/20 00:43 Respiratory Rate 18 05/06/20 00:43 Blood Pressure 158/84 05/06/20 00:43 Pulse Oximetry 100 05/06/20 00:43 MDM - Chest Pain MDM Narrative: Medical decision making narrative: Year and Damian PE calculation - PE unlikely - troponin negative, EKG reviewed without acute process - GI cocktail, reglan and Pepcid administered with complete resolution of chest pain. Lipase normal, 26; CMP and CBC without acute findings. Stopped PPI 2-3 months ago, CP worsened with intake of ETOH use, Pepcid Rx'd with dietary recommendations, advised f/u with PCP this week and to refrain from ETOH intake. Advised to return to the ED for worsening/concerning symptoms. Results of today's testing discussed. Lab Data: Labs: Lab Results 05/06/20 05/06/20 05/06/20 Range/Units 02:22 02:22 02:22 WBC 10.5 H (4.0-10.0) 10^3/ uL RBC 5.34 H (4.1-5.3) 10^6/u L Hgb 12.2 (11.5-15.3) g/dL Hct 40.5 (37.0-47.0) % MCV 75.8 L (81-99) fL MCH 22.8 L (28.0-34.0) pg MCHC 30.1 (30.0-36.0) g/dL RDW 16.2 H (12.1-15.1) % Plt Count 319 (130-400) 10^3/c mm MPV 10.7 H (7.4-10.4) fL Neut % (Auto) 61.0 % Lymph % (Auto) 32.6 % [place] % (Auto) 4.6 % Eos % (Auto) 1.0 % Baso % (Auto) 0.4 % Neut # (Auto) 6.43 (1.8-7.7) 10^3/u L Lymph # (Auto) 3.4 (0.8-4.8) 10^3/u L [place] # (Auto) 0.5 (0.2-0.9) 10^3/u L Eos # (Auto) 0.1 (0.0-0.8) 10^3/u L Baso # (Auto) 0.0 (0.0-0.1) 10^3/u L Nucleated RBC % (a uto) 0 % Nucleated RBCs # 0.0 /100WBC Sodium 138 (136-145) mmol/L Potassium 3.9 (3.5-5.1) mmol/L Chloride 103 (98-107) mmol/L Carbon Dioxide 26 (22-29) mmol/L Anion Gap 12.9 (5-19) BUN 10 (6-20) mg/dL Creatinine 0.7 (0.5-0.9) mg/dL GFR Calculation 104.6 (90-130) mL/min Glucose 110 (65-115) mg/dL Calculated Osmolal ity 286 (285-295) mOsm/k g Calcium 10.6 H (8.5-10.5) mg/dL Total Bilirubin 0.2 (0.15-1.2) mg/dL AST 16 (0-32) U/L ALT 24 (0-33) U/L Alkaline Phosphata se 82 (35-105) IU/L Troponin T Gen 5 n g/L (0-10) ng/L Total Protein 7.1 (6.6-8.7) g/dL Albumin 3.8 (3.5-5.2) g/dL Globulin 3.3 (1.3-4.6) g/dL Lipase 24 (13-60) U/L HCG, Qual Negative (Negative) 05/06/20 Range/Units 02:22 WBC (4.0-10.0) 10^3/ uL RBC (4.1-5.3) 10^6/u L Hgb (11.5-15.3) g/dL Hct (37.0-47.0) % MCV (81-99) fL MCH (28.0-34.0) pg MCHC (30.0-36.0) g/dL RDW (12.1-15.1) % Plt Count (130-400) 10^3/c mm MPV (7.4-10.4) fL Neut % (Auto) % Lymph % (Auto) % [place] % (Auto) % Eos % (Auto) % Baso % (Auto) % Neut # (Auto) (1.8-7.7) 10^3/u L Lymph # (Auto) (0.8-4.8) 10^3/u L [place] # (Auto) (0.2-0.9) 10^3/u L Eos # (Auto) (0.0-0.8) 10^3/u L Baso # (Auto) (0.0-0.1) 10^3/u L Nucleated RBC % (a uto) % Nucleated RBCs # /100WBC Sodium (136-145) mmol/L Potassium (3.5-5.1) mmol/L Chloride (98-107) mmol/L Carbon Dioxide (22-29) mmol/L Anion Gap (5-19) BUN (6-20) mg/dL Creatinine (0.5-0.9) mg/dL GFR Calculation (90-130) mL/min Glucose (65-115) mg/dL Calculated Osmolal ity (285-295) mOsm/k g Calcium (8.5-10.5) mg/dL Total Bilirubin (0.15-1.2) mg/dL AST (0-32) U/L ALT (0-33) U/L Alkaline Phosphata se (35-105) IU/L Troponin T Gen 5 n g/L 6 (0-10) ng/L Total Protein (6.6-8.7) g/dL Albumin (3.5-5.2) g/dL Globulin (1.3-4.6) g/dL Lipase (13-60) U/L HCG, Qual (Negative) EKG Data^: EKG 1: Other EKG comments: Sinus rhythm; ventricular rate 94, nonspecific ST elevation Discharge Plan Discharge Patient Disposition: Home Clinical Impression: Non-cardiac chest pain Gastritis Qualifiers: Gastritis type: alcoholic Chronicity: unspecified Gastritis bleeding: without bleeding Qualified Code(s): K29.20 - Alcoholic gastritis without bleeding Condition: Stable Prescriptions: New Pepcid 20 mg tablet 20 mg PO BID Qty: 20 RF: 0 Discontinued omeprazole 40 mg capsule,delayed release(DR/EC) 40 mg PO DAILY 84 Days Qty: 90 RF: 0 sertraline [Zoloft] 50 mg tablet 50 mg PO DAILY Qty: 30 RF: 2 trazodone 50 mg tablet 100 mg PO .HS Qty: 60 RF: 2 ondansetron HCl [Zofran] 4 mg tablet 4 mg PO Q6H PRN (Reason: nausea and vomiting) Qty: 10 RF: 0 hydrocodone-acetaminophen [[place]] 5-325 mg tablet 1 tab PO Q6H PRN (Reason: pain) Qty: 10 RF: 0 ondansetron 4 mg tablet,disintegrating 4 mg PO Q8H Qty: 20 RF: 0 naproxen [EC-Naprosyn] 500 mg tablet,delayed release (DR/EC) 500 mg PO BID PRN (Reason: pain) Qty: 20 RF: 0 Discharge Orders: Discharge ED (Routine); Ordered 05/06/20 Ordered By: Carlyn Avalos Referrals: Cameron Salas [Primary Care Provider] - Discharge Diet: Usual diet Discharge Activity: Limit activity as instructed Patient Instructions: Gastritis (ED), Noncardiac Chest Pain (ED) Activity Restrictions/Additional Instructions: Follow up with your primary care provider next week to ensure you are improving Avoid fried, greasy, spicy, fatty foods - avoid alcohol as alcohol can increase symptoms you are experiencing. return to the ED if you experience worsening symptoms such as shortness of breath, inability to catch your breath or other concerning symptoms. 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
[2020-05-06] MEDS: lidocaine 2% viscous 15 ML, aluminum-mag hydrox-simethicon 30 ML, sucralfate oral liq 1 GM PO (01:40)
--- NOTE | 2020-05-06 01:40 | PC.NURSE ---
EKG completed and given to STEF
[2020-05-06] MEDS: metoclopramide 5 mg/mL SDV 2 mL 10 MG IVP (02:28)
[2020-05-06 02:42] LABS: Basophils % 0.4 %; Eosinophils # 0.1 10^3/uL (0.0-0.8); Hematocrit 40.5 % (37.0-47.0); Hemoglobin 12.2 g/dL (11.5-15.3); Lymphocytes # 3.4 10^3/uL (0.8-4.8); Lymphocytes % 32.6 %; Mean Corpuscular HGB Conc 30.1 g/dL (30.0-36.0); Mean Corpuscular Hemoglobin 22.8 pg (28.0-34.0); Mean Corpuscular Volume 75.8 fL (81-99); Mean Platelet Volume 10.7 fL (7.4-10.4); Monocytes # 0.5 10^3/uL (0.2-0.9); Monocytes % 4.6 %; Neutrophils # 6.43 10^3/uL (1.8-7.7); Nucleated Red Blood Cells % 0 %; Platelet Count 319 10^3/cmm (130-400); Red Blood Count 5.34 10^6/uL (4.1-5.3); Red Cell Distribution Width 16.2 % (12.1-15.1); White Blood Count 10.5 10^3/uL (4.0-10.0)
[2020-05-06 02:52] LABS: HCG, Serum Qual Negative (Negative)
[2020-05-06 03:01] LABS: Alanine Aminotransferase 24 U/L (0-33); Albumin Level 3.8 g/dL (3.5-5.2); Alkaline Phosphatase 82 IU/L (35-105); Anion Gap 12.9 (5-19); Aspartate Amino Transferase 16 U/L (0-32); Blood Urea Nitrogen 10 mg/dL (6-20); Calcium 10.6 mg/dL (8.5-10.5); Carbon Dioxide 26 mmol/L (22-29); Chloride 103 mmol/L (98-107); Globulin 3.3 g/dL (1.3-4.6); Glomerular Filtration Rate 104.6 mL/min (90-130); Glucose 110 mg/dL (65-115); Lipase 24 U/L (13-60); Osmolality Calculated 286 mOsm/kg (285-295); Potassium 3.9 mmol/L (3.5-5.1); Sodium 138 mmol/L (136-145); Total Bilirubin 0.2 mg/dL (0.15-1.2); Total Protein 7.1 g/dL (6.6-8.7)
[2020-05-06 03:31] LABS: Troponin T (5th) Once 6 ng/L (0-10)
[2020-05-06] MEDS: famotidine 20 mg Tablet 40 MG PO (03:42)
[2020-05-06 03:58] VITALS: BP 145/81; PULSE 79; RESP 18; O2SAT 99
== END 2020-05-06 03:58 | disposition home or self-care (01) ==
PROVIDERS: Emergency Provider Nurse Practitioner Family; PCP Family Medicine
DX: R07.89 Other chest pain (principal); K29.20 Alcoholic gastritis without bleeding; F17.290 Nicotine dependence, other tobacco product, uncomplicated
CPT/HCPCS: 12345; 71046; 80053; 83690; 84484; 84703; 85025; 93005; 96374; 99283; J2765

== ENCOUNTER → 2020-11-19 12:43 | Outpatient (BNVA) | payer BC, SELFPAY | PROVIDERS: PCP Nurse Practitioner Family; Visit Provider Specialist | DX: R20.0 Anesthesia of skin (principal); R20.2 Paresthesia of skin; F17.290 Nicotine dependence, other tobacco product, uncomplicated | CPT/HCPCS: 95910 ==

== ENCOUNTER 2020-11-20 20:00 | Outpatient (CLI) | payer BC, SELFPAY | END 2020-11-20 20:01 | disposition home or self-care (01) | LOC: SLEEP 11-21 08:27 | PROVIDERS: PCP Nurse Practitioner Family; Visit Provider Nurse Practitioner Family | DX: G47.10 Hypersomnia, unspecified (principal); G47.33 Obstructive sleep apnea (adult) (pediatric) | CPT/HCPCS: 95810 ==

== ENCOUNTER → 2020-12-04 13:50 | Outpatient (BNVA) | payer BC, SELFPAY | PROVIDERS: PCP Nurse Practitioner Family; Visit Provider Nurse Practitioner Women's Health | DX: Z12.4 Encounter for screening for malignant neoplasm of cervix (principal); N94.6 Dysmenorrhea, unspecified | CPT/HCPCS: 88175 ==

== ENCOUNTER 2020-12-27 02:46 | Emergency (ER) | payer BC, SELFPAY ==
[2020-12-27 02:55] VITALS: BP 155/96; PULSE 89; RESP 18; TEMP 36.7; O2SAT 97; BMI 59.5
--- NOTE | 2020-12-27 02:58 | W.ED.ABDPA2 ---
HPI - Abdominal Pain General: Chief Complaint: Abdominal Pain Stated Complaint: abd pain Time Seen by Provider: 12/27/20 02:49 Source: patient Mode of arrival: ambulatory Limitations: no limitations History of Present Illness: HPI narrative: 5-year-old female states she been having left lower quadrant abdominal pain with some left flank pain that started yesterday morning. States the pain is been a sharp in nature and rates it a 5 out of 10. States she has had severe dysuria and her pain is much worse with urination. Denies any vomiting or fevers. Denies any worsening proving factors. Denies any vaginal discharge. She has no history of any abdominal surgeries. Associated Symptoms: Reports dysuria; Denies chills and fever(s) Related Data: Date of Last Menstrual Period: 01/03/20 Review of Systems Const: Denies: fever(s), chills, body aches or change in appetite Eyes: Denies: blurry vision or eye discomfort ENMT: Denies: throat pain or dental pain Card: Denies: chest pain Resp: Denies: dyspnea GI: Reports: abdominal pain : Reports: dysuria Musc: Denies: neck pain or back pain Skin/Breast: Denies: rash Neuro: Denies: headache(s) Psych: Denies: depression Tom/Lymph: Denies: easy bruising All/Imm: Denies: urticaria PFSH ED PFSH: Medical History No pertinent past medical history neghx: htn,dm,thyroid,dvt/pe 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 Tachycardia episodes-- managed with prn meds managed with Val Cain Surgical History No pertinent past surgical history Family History Grandmother Breast cancer Paternal--dx age 40 Ovarian cancer Maternal-- dx age unknown Family/Other Diabetes Paternal side in general Mother Ovarian cancer dx age in 20's Sister Ovarian cancer Sister- x3 --- dx age 16 Sister--dx age 22 Sister dx age 22 Thyroid disease x2 Denies family history of Colon cancer Heart disease Hypercholesteremia Hypertension Uterine cancer Stroke Female Reproductive History: Date of last menstrual period: 01/03/20 Physical Exam Const: COMMON NORMALS: no acute distress, patient oriented x3 and healthy appearing HENMT: COMMON NORMALS: normocephalic and atraumatic HEAD & SCALP: normocephalic and atraumatic Eye: COMMON NORMALS: Equal, round and reactive pupils present and EOMs intact bilaterally PUPIL: Yes Equal, round and reactive pupils present Neck/C-Spine: COMMON NORMALS: full ROM and supple Chest: COMMONS NORMALS: normal inspection of the chest and normal palpation of entire chest wall Resp: COMMON NORMALS: normal respiratory effort, No retractions, No use of accessory muscles and clear to auscultation bilaterally AUSCULTATION: clear to auscultation bilaterally Cardio: COMMON NORMALS: regular rate, regular rhythm and No murmurs present (Cardio) RATE: regular rate RHYTHM: regular rhythm GI: COMMON NORMALS: Normal to inspection, nondistended, normoactive bowel sounds present, Soft to palpation and no masses PALPATION: Yes Soft to palpation OTHER: mild llq tenderness and left flank tenderness Extremity: COMMON NORMALS: normal to inspection and full ROM Neuro: COMMON NORMALS: patient oriented x3, moves all extremities and no focal motor deficits Psych: COMMON NORMALS: mental status grossly normal, Normal thought process present and cooperative THOUGHT PROCESS: Normal thought process present Skin: COMMON NORMALS: no rashes or lesions noted and no wounds GENERAL SKIN EXAM: no rashes or lesions noted Course Vital Signs: Vital signs: Vital Signs Temperature 98.1 F 12/27/20 02:55 Pulse Rate 89 12/27/20 02:55 Respiratory Rate 18 12/27/20 03:36 Blood Pressure 155/96 12/27/20 02:55 Pulse Oximetry 97 12/27/20 03:36 MDM - Abdominal Pain MDM Narrative: Medical decision making narrative: Patient presents here with dysuria likely cystitis. CT scan here was otherwise normal. She feels improved and will start on Keflex and she is stable for discharge. She is to follow-up with PCP and return if worsening. She understands agrees to plan. Lab Data: Labs: Lab Results 12/27/20 12/27/20 12/27/20 Range/Units 03:00 03:00 03:00 WBC 14.5 H (4.0-10.0) 10^3/ uL RBC 5.70 H (4.1-5.3) 10^6/u L Hgb 14.1 (11.5-15.3) g/dL Hct 44.9 (37.0-47.0) % MCV 78.8 L (81-99) fl MCH 24.7 L (28.0-34.0) pg MCHC 31.4 (30.0-36.0) g/dL RDW 15.1 (12.1-15.1) % Plt Count 307 (130-400) 10^3/c mm MPV 10.7 H (7.4-10.4) fL Neut % (Auto) 71.7 % Lymph % (Auto) 21.4 % [place] % (Auto) 5.6 % Eos % (Auto) 0.6 % Baso % (Auto) 0.4 % Neut # (Auto) 10.38 H (1.8-7.7) 10^3/u L Lymph # (Auto) 3.1 (0.8-4.8) 10^3/u L [place] # (Auto) 0.8 (0.2-0.9) 10^3/u L Eos # (Auto) 0.1 (0.0-0.8) 10^3/u L Baso # (Auto) 0.1 (0.0-0.1) 10^3/u L Nucleated RBC % (a uto) 0 % Nucleated RBCs # 0.0 /100WBC Sodium 136 (136-145) mmol/L Potassium 4.2 (3.5-5.1) mmol/L Chloride 101 (98-107) mmol/L Carbon Dioxide 26 (22-29) mmol/L Anion Gap 13.2 (5-19) BUN 8 (6-20) mg/dL Creatinine 0.7 (0.5-0.9) mg/dL GFR Calculation 103.7 (90-130) mL/min Glucose 89 (65-115) mg/dL Calculated Osmolal ity 280 L (285-295) mOsm/k g Calcium 11.0 H (8.5-10.5) mg/dL Total Bilirubin 0.3 (0.15-1.2) mg/dL AST 16 (0-32) U/L ALT 24 (0-33) U/L Alkaline Phosphata se 93 (35-105) IU/L Total Protein 7.1 (6.6-8.7) g/dL Albumin 3.8 (3.5-5.2) g/dL Globulin 3.3 (1.3-4.6) g/dL Lipase 31 (13-60) U/L HCG, Qual Negative (Negative) Urine Color (Yellow) Urine Appearance (CLEAR) Urine pH (5-7) Ur Specific Gravit y (1.005-1.030) Urine Protein (Negative) Urine Glucose (UA) (Normal) Urine Ketones (Negative) Urine Blood (Negative) Urine Nitrate (Negative) Urine Bilirubin (Negative) Urine Urobilinogen (Negative) mg/dL Ur Leukocyte Irasema ase (Negative) Urine RBC (0-2) /hpf Urine WBC (0-5) /hpf Ur Squamous Epith Cells (0-5) /hpf Amorphous Sediment Urine Bacteria (NONE) /hpf Urine Mucus /hpf 12/27/20 Range/Units 03:15 WBC (4.0-10.0) 10^3/ uL RBC (4.1-5.3) 10^6/u L Hgb (11.5-15.3) g/dL Hct (37.0-47.0) % MCV (81-99) fl MCH (28.0-34.0) pg MCHC (30.0-36.0) g/dL RDW (12.1-15.1) % Plt Count (130-400) 10^3/c mm MPV (7.4-10.4) fL Neut % (Auto) % Lymph % (Auto) % [place] % (Auto) % Eos % (Auto) % Baso % (Auto) % Neut # (Auto) (1.8-7.7) 10^3/u L Lymph # (Auto) (0.8-4.8) 10^3/u L [place] # (Auto) (0.2-0.9) 10^3/u L Eos # (Auto) (0.0-0.8) 10^3/u L Baso # (Auto) (0.0-0.1) 10^3/u L Nucleated RBC % (a uto) % Nucleated RBCs # /100WBC Sodium (136-145) mmol/L Potassium (3.5-5.1) mmol/L Chloride (98-107) mmol/L Carbon Dioxide (22-29) mmol/L Anion Gap (5-19) BUN (6-20) mg/dL Creatinine (0.5-0.9) mg/dL GFR Calculation (90-130) mL/min Glucose (65-115) mg/dL Calculated Osmolal ity (285-295) mOsm/k g Calcium (8.5-10.5) mg/dL Total Bilirubin (0.15-1.2) mg/dL AST (0-32) U/L ALT (0-33) U/L Alkaline Phosphata se (35-105) IU/L Total Protein (6.6-8.7) g/dL Albumin (3.5-5.2) g/dL Globulin (1.3-4.6) g/dL Lipase (13-60) U/L HCG, Qual (Negative) Urine Color Yellow (Yellow) Urine Appearance Hazy A (CLEAR) Urine pH 6.5 (5-7) Ur Specific Gravit y 1.015 (1.005-1.030) Urine Protein Neg (Negative) Urine Glucose (UA) Norm (Normal) Urine Ketones Negative (Negative) Urine Blood 3+ H (Negative) Urine Nitrate Negative (Negative) Urine Bilirubin Neg (Negative) Urine Urobilinogen Norm (Negative) mg/dL Ur Leukocyte Irasema ase Trace H (Negative) Urine RBC 25-40 H (0-2) /hpf Urine WBC 55-80 H (0-5) /hpf Ur Squamous Epith Cells 0-4 H (0-5) /hpf Amorphous Sediment Not Reportable Urine Bacteria Trace (NONE) /hpf Urine Mucus Trace /hpf Imaging Data ^: CT Abd/Pel: Attestation: I personally reviewed and interpreted this imaging study as follows: Radiologist's impression: [address] [place] [address] CT Scan Report Signed Patient: Shoaib Lang Unit #: [id number] : [id number] Age/Sex: 25 / F ADM Date: 12/27/20 Loc: ER Room/Bed: Attending Dr: Ordering Provider/Ordering MD: Ramin Paulino MD Date of Service: 12/27/20 Procedure(s): CT abdomen pelvis w con* [id number] Accession Number(s): [id number] Report Number: [id number] PROCEDURE INFORMATION: Exam: CT Abdomen And Pelvis With Contrast Exam date and time: 12/27/2020 3:13 AM Age: 25 years old Clinical indication: Abdominal pain; Localized; Left lower quadrant (llq); Patient HX: Llq pain with dysuria. ; Additional info: Abd pain TECHNIQUE: Imaging protocol: Computed tomography of the abdomen and pelvis with contrast. Radiation optimization: All CT scans at this facility use at least one of these dose optimization techniques: automated exposure control; mA and/or kV adjustment per patient size (includes targeted exams where dose is matched to clinical indication); or iterative reconstruction. Contrast material: OMNI 300; Contrast volume: 95 ml; Contrast route: INTRAVENOUS (IV); COMPARISON: CT kidney stone [id number] 10/29/2019 6:07 AM RADIATION DOSE METRICS: Total DLP (mGy-cm): 1786.72 FINDINGS: Lungs: Subtle haziness seen in the dependent portion the lungs compatible with atelectasis. Pleural spaces: Tiny right pleural effusion Liver: There is subtle hypoattenuation of the hepatic parenchyma compatible with fatty infiltration. Gallbladder and bile ducts: Normal. No calcified stones. No ductal dilation. Pancreas: Normal. No ductal dilation. Spleen: Normal. No splenomegaly. Adrenal glands: Normal. No mass. Kidneys and ureters: Normal. No hydronephrosis. Stomach and bowel: Unremarkable. No obstruction. No mucosal thickening. Appendix: No evidence of appendicitis. Intraperitoneal space: Unremarkable. No free air. No significant fluid collection. Vasculature: Unremarkable. No abdominal aortic aneurysm. Lymph nodes: Unremarkable. No enlarged lymph nodes. Urinary bladder: Some subtle haziness seen along the serosal margin bladder, findings that could represent mild cystitis although the bladder is incompletely distended. Reproductive: Unremarkable as visualized. Bones/joints: Unremarkable. No acute fracture. Soft tissues: Unremarkable. CT/CT abdomen pelvis w con* [id number] IMPRESSION: 1. Mild fatty infiltration liver 2. Subtle haziness seen along the serosal margin bladder could represent cystitis although the bladder is incompletely distended. 3. Tiny right pleural effusion and superimposing bilateral basilar atelectasis Radiation Dose CTDIVOL = (mGy): DLP = 1786.72 (mGy-cm) Dictated By: Poli Bess MD Signed By: Poli Bess MD Signed Date/Time: 12/27/20527 DD/ 6 Discharge Plan Discharge Patient Disposition: Home Clinical Impression: UTI (urinary tract infection) Qualifiers: Urinary tract infection type: site unspecified Hematuria presence: without hematuria Qualified Code(s): N39.0 - Urinary tract infection, site not specified Condition: Stable Prescriptions: New cephalexin 500 mg capsule 500 mg PO TID 7 Days Qty: 21 RF: 0 ondansetron 4 mg tablet,disintegrating 4 mg PO Q6H PRN (Reason: nausea and vomiting) Qty: 14 RF: 0 Naprosyn 500 mg tablet 500 mg PO BID PRN (Reason: pain) Qty: 20 RF: 0 No Action sertraline [Zoloft] 100 mg tablet 100 mg PO DAILY Qty: 30 RF: 2 propranolol 20 mg tablet 20 mg PO BID PRN (Reason: anxiety) Qty: 60 RF: 2 prazosin 5 mg capsule 5 mg PO .HS Qty: 30 RF: 2 trazodone 50 mg tablet 50 mg PO DAILY RF: 0 Discharge Orders: Discharge ED (Routine); Ordered 12/27/20 Ordered By: Ramin Paulino Referrals: Val Cain FNP [Primary Care Provider] - 1-3 days Discharge Diet: Advance as tolerated Discharge Activity: Resume usual activity Patient Instructions: Urinary Tract Infection in Women (ED) Coding Level of Care Code 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
[2020-12-27] MEDS: sodium chloride 0.9% 1,000 ML 999 ML IV (03:00)
[2020-12-27] MEDS: ondansetron 2 mg/ML SDV 2 mL 4 MG IVP (03:05)
[2020-12-27 03:09] LABS: Basophils # 0.1 10^3/uL (0.0-0.1); Basophils % 0.4 %; Eosinophils # 0.1 10^3/uL (0.0-0.8); Eosinophils % 0.6 %; Hematocrit 44.9 % (37.0-47.0); Hemoglobin 14.1 g/dL (11.5-15.3); Lymphocytes # 3.1 10^3/uL (0.8-4.8); Lymphocytes % 21.4 %; Mean Corpuscular HGB Conc 31.4 g/dL (30.0-36.0); Mean Corpuscular Hemoglobin 24.7 pg (28.0-34.0); Mean Corpuscular Volume 78.8 fl (81-99); Mean Platelet Volume 10.7 fL (7.4-10.4); Monocytes # 0.8 10^3/uL (0.2-0.9); Monocytes % 5.6 %; Neutrophils # 10.38 10^3/uL (1.8-7.7); Neutrophils % 71.7 %; Nucleated Red Blood Cells % 0 %; Platelet Count 307 10^3/cmm (130-400); Red Cell Distribution Width 15.1 % (12.1-15.1); White Blood Count 14.5 10^3/uL (4.0-10.0)
--- NOTE | 2020-12-27 03:13 | CTR_ITS ---
PROCEDURE INFORMATION: Exam: CT Abdomen And Pelvis With Contrast Exam date and time: 12/27/2020 3:13 AM Age: 25 years old Clinical indication: Abdominal pain; Localized; Left lower quadrant (llq); Patient HX: Llq pain with dysuria. ; Additional info: Abd pain TECHNIQUE: Imaging protocol: Computed tomography of the abdomen and pelvis with contrast. Radiation optimization: All CT scans at this facility use at least one of these dose optimization techniques: automated exposure control; mA and/or kV adjustment per patient size (includes targeted exams where dose is matched to clinical indication); or iterative reconstruction. Contrast material: OMNI 300; Contrast volume: 95 ml; Contrast route: INTRAVENOUS (IV); COMPARISON: CT kidney stone [id number] 10/29/2019 6:07 AM RADIATION DOSE METRICS: Total DLP (mGy-cm): 1786.72 FINDINGS: Lungs: Subtle haziness seen in the dependent portion the lungs compatible with atelectasis. Pleural spaces: Tiny right pleural effusion Liver: There is subtle hypoattenuation of the hepatic parenchyma compatible with fatty infiltration. Gallbladder and bile ducts: Normal. No calcified stones. No ductal dilation. Pancreas: Normal. No ductal dilation. Spleen: Normal. No splenomegaly. Adrenal glands: Normal. No mass. Kidneys and ureters: Normal. No hydronephrosis. Stomach and bowel: Unremarkable. No obstruction. No mucosal thickening. Appendix: No evidence of appendicitis. Intraperitoneal space: Unremarkable. No free air. No significant fluid collection. Vasculature: Unremarkable. No abdominal aortic aneurysm. Lymph nodes: Unremarkable. No enlarged lymph nodes. Urinary bladder: Some subtle haziness seen along the serosal margin bladder, findings that could represent mild cystitis although the bladder is incompletely distended. Reproductive: Unremarkable as visualized. Bones/joints: Unremarkable. No acute fracture. Soft tissues: Unremarkable. CT/CT abdomen pelvis w con* [id number] IMPRESSION: 1. Mild fatty infiltration liver 2. Subtle haziness seen along the serosal margin bladder could represent cystitis although the bladder is incompletely distended. 3. Tiny right pleural effusion and superimposing bilateral basilar atelectasis Radiation Dose CTDIVOL = (mGy): DLP = 1786.72 (mGy-cm)
[2020-12-27 03:23] LABS: Alanine Aminotransferase 24 U/L (0-33); Albumin Level 3.8 g/dL (3.5-5.2); Alkaline Phosphatase 93 IU/L (35-105); Anion Gap 13.2 (5-19); Aspartate Amino Transferase 16 U/L (0-32); Blood Urea Nitrogen 8 mg/dL (6-20); Carbon Dioxide 26 mmol/L (22-29); Chloride 101 mmol/L (98-107); Globulin 3.3 g/dL (1.3-4.6); Glomerular Filtration Rate 103.7 mL/min (90-130); Glucose 89 mg/dL (65-115); Lipase 31 U/L (13-60); Osmolality Calculated 280 mOsm/kg (285-295); Potassium 4.2 mmol/L (3.5-5.1); Sodium 136 mmol/L (136-145); Total Bilirubin 0.3 mg/dL (0.15-1.2); Total Protein 7.1 g/dL (6.6-8.7)
[2020-12-27 03:26] LABS: HCG, Serum Qual Negative (Negative)
[2020-12-27 03:36] VITALS: RESP 18; O2SAT 97
[2020-12-27] MEDS: morphine 4 mg/mL SDV 1 mL IVP (03:36)
[2020-12-27] MEDS: iohexol 300 mg/mL 100 mL Btl IV (03:53)
[2020-12-27 04:07] LABS: Glucose Urine UA Norm (Normal); Ketones Urine Negative (Negative); Protein Urine Neg (Negative); Specific Gravity, Urine 1.015 (1.005-1.030); Urine Appearance Hazy (CLEAR); Urine Color Yellow (Yellow); pH Urine 6.5 (5-7)
[2020-12-27 04:08] LABS: Add Urine Culture? Yes; Add Urine Microscopic? YES; Bacteria Urine TRACE /hpf; Bilirubin Urine Neg (Negative); Blood Urine 3+ (Negative); Leukocyte Esterase Urine Trace (Negative); Mucus Urine TRACE /hpf; Nitrate Urine Negative (Negative); RBC Urine 25-40 /hpf (0-2); Squamous Epithelial Cell Urine 0-4 /hpf (0-5); Urobilinogen Urine Norm (Negative); WBC Urine 55-80 /hpf (0-5)
[2020-12-27 05:42] VITALS: BP 127/94; PULSE 78; RESP 16; TEMP 36.7; O2SAT 97
== END 2020-12-27 05:43 | disposition home or self-care (01) ==
PROVIDERS: Emergency Provider Emergency Medicine; PCP Nurse Practitioner Family
DX: N39.0 Urinary tract infection, site not specified (principal)
CPT/HCPCS: 74177; 80053; 81001; 83690; 84703; 85025; 87077; 87086; 87186; 96361; 96374; 96375; 99283; J2270; J2405; J7030; Q9967

== ENCOUNTER 2021-01-23 16:28 | Outpatient (CLI) | payer BC, SELFPAY ==
--- NOTE | 2021-01-23 | CTR_ITS ---
PROCEDURE INFORMATION: Exam: CT Head Without Contrast Exam date and time: 01/23/2021 12:00 AM Age: 25 years old Clinical indication: Pain; Headache; Patient HX: Call report to gely diaz [phone]; Additional info: NOYOLA TECHNIQUE: Imaging protocol: Computed tomography of the head without contrast. Total images: 155 Radiation optimization: All CT scans at this facility use at least one of these dose optimization techniques: automated exposure control; mA and/or kV adjustment per patient size (includes targeted exams where dose is matched to clinical indication); or iterative reconstruction. COMPARISON: CT head wo con* [id number] 03/11/2018 10:18 AM RADIATION DOSE METRICS: Total DLP (mGy-cm): 835.79 FINDINGS: Brain: No evidence of active or acute intracranial pathologic process, hemorrhage, or trauma. No hyperdense MCA or insular ribbon sign. No mass effect. No midline shift. Cerebral ventricles: No ventriculomegaly. Paranasal sinuses: Visualized sinuses are unremarkable. No fluid levels. Mastoid air cells: Visualized mastoid air cells are well aerated. Bones/joints: Unremarkable. No acute fracture. Soft tissues: Unremarkable. Other findings: Obesity. CT/CT head wo con* [id number] IMPRESSION: No evidence of active or acute intracranial pathologic process, hemorrhage, or trauma. Radiation Dose CTDIVOL = (mGy): DLP = 835.79 (mGy-cm)
== END 2021-01-23 16:29 | disposition home or self-care (01) ==
LOC: RAD 16:32
PROVIDERS: PCP Nurse Practitioner Family; Visit Provider Nurse Practitioner Family
DX: R51.9 Headache, unspecified (principal)
CPT/HCPCS: 70450

== ENCOUNTER 2021-02-04 23:15 | Emergency (ER) | payer BC, SELFPAY ==
[2021-02-04 23:34] VITALS: BP 162/94; PULSE 105; RESP 22; TEMP 37.4; O2SAT 97; BMI 57.6
--- NOTE | 2021-02-04 23:55 | XRR_ITS ---
PROCEDURE INFORMATION: Exam: XR Chest Exam date and time: 02/04/2021 11:55 PM Age: 25 years old Clinical indication: Fever TECHNIQUE: Imaging protocol: XR of the chest. Views: 1 view. COMPARISON: CR XR chest 2V* [id number] 05/06/2020 1:07 AM FINDINGS: Lungs: Perihilar and lower lung vascular crowding is likely on the basis of limited inspiratory volume. Question minor left infrahilar interstitial pneumonitis. Pleural spaces: Unremarkable. No pleural effusion. No pneumothorax. Heart/Mediastinum: Cardiomediastinal silhouette is similar. Bones/joints: Minor thoracic curvature left concavity. XR/XR chest 1V portable [id number] IMPRESSION: Stable chest without significant interval change. Question minor left infrahilar pneumonitis. Radiation Dose CTDIVOL = (mGy): DLP = (mGy-cm)
[2021-02-05 00:03] VITALS: BP 134/73; PULSE 104; RESP 20; O2SAT 96
[2021-02-05 00:10] LABS: Basophils % 0.3 %; Eosinophils % 0.2 %; Hematocrit 42.6 % (37.0-47.0); Hemoglobin 13.4 g/dL (11.5-15.3); Lymphocytes # 1.7 10^3/uL (0.8-4.8); Mean Corpuscular HGB Conc 31.5 g/dL (30.0-36.0); Mean Corpuscular Hemoglobin 25.2 pg (28.0-34.0); Mean Corpuscular Volume 80.2 fl (81-99); Mean Platelet Volume 10.9 fL (7.4-10.4); Monocytes # 0.6 10^3/uL (0.2-0.9); Monocytes % 4.7 %; Neutrophils # 9.92 10^3/uL (1.8-7.7); Neutrophils % 80.6 %; Nucleated Red Blood Cells % 0 %; Platelet Count 234 10^3/cmm (130-400); Red Blood Count 5.31 10^6/uL (4.1-5.3); Red Cell Distribution Width 14.7 % (12.1-15.1); White Blood Count 12.3 10^3/uL (4.0-10.0)
--- NOTE | 2021-02-05 00:14 | W.ED.DIZZY ---
HPI - Dizziness General: Chief Complaint: Dizziness Stated Complaint: Fever\Nausea\Fatigue Time Seen by Provider: 02/04/21 23:46 Source: patient Mode of arrival: ambulatory Limitations: no limitations History of Present Illness: HPI Narrative: 25-year-old female who states that over the last day she been having generalized body aches weakness and fevers. States her fever earlier was 102 states she is just felt tired and fatigued all day. She had a mild headache and mild body aches. Denies any cough denies any shortness of breath denies any dysuria. Denies any worsening improving factors. Associated symptoms: Reports chills; Denies chest pain, headache(s), nausea or vomiting Review of Systems Const: Reports: fever(s), chills and body aches Eyes: Denies: blurry vision or eye discomfort ENMT: Denies: throat pain or dental pain Card: Denies: chest pain Resp: Denies: dyspnea GI: Denies: abdominal pain, nausea, vomiting or diarrhea : Denies: dysuria Musc: Denies: neck pain or back pain Skin/Breast: Denies: rash Neuro: Denies: headache(s) Psych: Denies: depression Tom/Lymph: Denies: easy bruising All/Imm: Denies: urticaria PFSH ED PFSH: Medical History No pertinent past medical history neghx: htn,dm,thyroid,dvt/pe PCP: [facility] Tachycardia episodes-- managed with prn meds managed with Val Cain Surgical History No pertinent past surgical history Family History Grandmother Breast cancer Paternal--dx age 40 Ovarian cancer Maternal-- dx age unknown Family/Other Diabetes Paternal side in general Mother Ovarian cancer dx age in 20's Sister Ovarian cancer Sister- x3 --- dx age 16 Sister--dx age 22 Sister dx age 22 Thyroid disease x2 Social History Smoking and tobacco status: current every day smoker e-cigarettes E-Cigarette Details: vaporizer device and with nicotine E-cig/vape details: 6 mg Quit status (tobacco): has tried quititng Number of times tried to quit tobacco: 2 Second hand smoke exposure: No Female Reproductive History: Date of last menstrual period: 01/03/20 Physical Exam Const: COMMON NORMALS: no acute distress, patient oriented x3 and healthy appearing HENMT: COMMON NORMALS: normocephalic and atraumatic HEAD & SCALP: normocephalic and atraumatic Eye: COMMON NORMALS: Equal, round and reactive pupils present and EOMs intact bilaterally PUPIL: Yes Equal, round and reactive pupils present Neck/C-Spine: COMMON NORMALS: full ROM and supple Chest: COMMONS NORMALS: normal inspection of the chest and normal palpation of entire chest wall Resp: COMMON NORMALS: normal respiratory effort, No retractions, No use of accessory muscles and clear to auscultation bilaterally AUSCULTATION: clear to auscultation bilaterally Cardio: COMMON NORMALS: regular rate, regular rhythm and No murmurs present (Cardio) RATE: regular rate RHYTHM: regular rhythm GI: COMMON NORMALS: Normal to inspection, nondistended, normoactive bowel sounds present, Soft to palpation, non-tender and no masses PALPATION: Yes Soft to palpation Extremity: COMMON NORMALS: normal to inspection and full ROM Neuro: COMMON NORMALS: patient oriented x3, moves all extremities and no focal motor deficits Psych: COMMON NORMALS: mental status grossly normal, Normal thought process present and cooperative THOUGHT PROCESS: Normal thought process present Skin: COMMON NORMALS: no rashes or lesions noted and no wounds GENERAL SKIN EXAM: no rashes or lesions noted Course Vital Signs: Vital signs: Vital Signs Temperature 99.4 F 02/04/21 23:34 Pulse Rate 93 02/05/21 00:57 Respiratory Rate 16 02/05/21 00:57 Blood Pressure 149/82 02/05/21 00:57 Pulse Oximetry 97 02/05/21 00:57 MDM - Dizziness MDM Narrative: Medical decision making narrative: Patient presents here with fever body aches likely viral syndrome. She has no signs of meningitis or pyelonephritis. Patient's blood work chest x-ray here are normal. She is well-appearing here and exam is benign. She is stable for discharge is to follow-up PCP and return if worsening. Lab Data: Labs: Lab Results 10/04/1502/04/21 02/05/21 23:55 23:55 23:55 WBC 12.3 10^3/uL H 10 ^3/uL (4.0-10.0) RBC 5.31 10^6/uL H 10 ^6/uL (4.1-5.3) Hgb 13.4 g/dL g/dL (11.5-15.3) Hct 42.6 % % (37.0-47.0) MCV 80.2 fl L fl (81-99) MCH 25.2 pg L pg (28.0-34.0) MCHC 31.5 g/dL g/dL (30.0-36.0) RDW 14.7 % % (12.1-15.1) Plt Count 234 10^3/cmm 10^3 /cmm (130-400) MPV 10.9 fL H fL (7.4-10.4) Neut % (Auto) 80.6 % % Lymph % (Auto) 14.0 % % [place] % (Auto) 4.7 % % Eos % (Auto) 0.2 % % Baso % (Auto) 0.3 % % Neut # (Auto) 9.92 10^3/uL H 10 ^3/uL (1.8-7.7) Lymph # (Auto) 1.7 10^3/uL 10^3/ uL (0.8-4.8) [place] # (Auto) 0.6 10^3/uL 10^3/ uL (0.2-0.9) Eos # (Auto) 0.0 10^3/uL 10^3/ uL (0.0-0.8) Baso # (Auto) 0.0 10^3/uL 10^3/ uL (0.0-0.1) Nucleated RBC % (a uto) 0 % % Nucleated RBCs # 0.0 /100WBC /100W BC Sodium 134 mmol/L L mmol /L (136-145) Potassium 4.2 mmol/L mmol/L (3.5-5.1) Chloride 102 mmol/L mmol/L (98-107) Carbon Dioxide 20 mmol/L L mmol/ L (22-29) Anion Gap 16.2 (5-19) BUN 11 mg/dL mg/dL (6-20) Creatinine 0.7 mg/dL mg/dL (0.5-0.9) GFR Calculation 103.7 mL/min mL/m in (90-130) Glucose 95 mg/dL mg/dL (65-115) Calculated Osmolal ity 277 mOsm/kg L mOs m/kg (285-295) Calcium 9.8 mg/dL mg/dL (8.5-10.5) Total Bilirubin 0.4 mg/dL mg/dL (0.15-1.2) AST 14 U/L U/L (0-32) ALT 24 U/L U/L (0-33) Alkaline Phosphata se 74 IU/L IU/L (35-105) Total Protein 6.9 g/dL g/dL (6.6-8.7) Albumin 3.7 g/dL g/dL (3.5-5.2) Globulin 3.2 g/dL g/dL (1.3-4.6) Urine Color Yellow (Yellow) Urine Appearance Cloudy (CLEAR) Urine pH 8 H (5-7) Ur Specific Gravit y 1.010 (1.005-1.030) Urine Protein Neg (Negative) Urine Glucose (UA) Norm (Normal) Urine Ketones Negative (Negative) Urine Blood Neg (Negative) Urine Nitrate Negative (Negative) Urine Bilirubin Neg (Negative) Prot Sulfosalicyli c Acd Negative (Negative) Urine Urobilinogen Norm mg/dL mg/dL (Negative) Ur Leukocyte Irasema ase Negative (Negative) Urine RBC 0-4 /hpf H /hpf (0-2) Urine WBC 0-4 /hpf H /hpf (0-5) Ur Squamous Epith Cells 15-25 /hpf H /hpf (0-5) Amorphous Sediment 4+ /hpf /hpf Urine Bacteria 1+ /hpf H /hpf (NONE) SARS-CoV-2 Ag (Rap id) 02/05/21 23:55 WBC RBC Hgb Hct MCV MCH MCHC RDW Plt Count MPV Neut % (Auto) Lymph % (Auto) [place] % (Auto) Eos % (Auto) Baso % (Auto) Neut # (Auto) Lymph # (Auto) [place] # (Auto) Eos # (Auto) Baso # (Auto) Nucleated RBC % (a uto) Nucleated RBCs # Sodium Potassium Chloride Carbon Dioxide Anion Gap BUN Creatinine GFR Calculation Glucose Calculated Osmolal ity Calcium Total Bilirubin AST ALT Alkaline Phosphata se Total Protein Albumin Globulin Urine Color Urine Appearance Urine pH Ur Specific Gravit y Urine Protein Urine Glucose (UA) Urine Ketones Urine Blood Urine Nitrate Urine Bilirubin Prot Sulfosalicyli c Acd Urine Urobilinogen Ur Leukocyte Irasema ase Urine RBC Urine WBC Ur Squamous Epith Cells Amorphous Sediment Urine Bacteria SARS-CoV-2 Ag (Rap id) Negative (Negative) Imaging Data^: CXR: Attestation: I personally reviewed and interpreted this imaging study as follows: My impression: no acute abnormalilty Discharge Plan Discharge Patient Disposition: Home Clinical Impression: Acute viral syndrome Condition: Stable Prescriptions: No Action prazosin 5 mg capsule 5 mg PO .HS Qty: 30 RF: 2 propranolol 20 mg tablet 20 mg PO BID PRN (Reason: anxiety) Qty: 60 RF: 2 sertraline [Zoloft] 100 mg tablet 100 mg PO DAILY Qty: 30 RF: 2 trazodone 50 mg tablet 100 mg PO .HS PRN (Reason: insomnia) Qty: 60 RF: 2 ondansetron 4 mg tablet,disintegrating 4 mg PO Q6H PRN (Reason: nausea and vomiting) Qty: 14 RF: 0 Naprosyn 500 mg tablet 500 mg PO BID PRN (Reason: pain) Qty: 20 RF: 0 Discharge Orders: Discharge ED (Routine); Ordered 02/05/21 Ordered By: Ramin Paulino Referrals: Val Cain FNP [Primary Care Provider] - Discharge Diet: Advance as tolerated Discharge Activity: Resume usual activity Patient Instructions: Viral Syndrome (ED) Coding Level of Care Code 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
[2021-02-05 00:17] LABS: Urine Appearance Cloudy (CLEAR); Urine Color Yellow (Yellow)
[2021-02-05 00:18] LABS: Add Urine Microscopic? YES; Bilirubin Urine Neg (Negative); Blood Urine Neg (Negative); Glucose Urine UA Norm (Normal); Ketones Urine Negative (Negative); Leukocyte Esterase Urine Negative (Negative); Nitrate Urine Negative (Negative); Protein Urine Neg (Negative); Sulfosalicylic Acid Urine Negative (Negative); Urobilinogen Urine Norm (Negative); pH Urine 8 (5-7)
[2021-02-05 00:19] LABS: Add Urine Culture? No; Amorphous Sediment Urine 4+ /hpf; Bacteria Urine 1+ /hpf; RBC Urine 0-4 /hpf (0-2); Squamous Epithelial Cell Urine 15-25 /hpf (0-5); WBC Urine 0-4 /hpf (0-5)
[2021-02-05 00:32] LABS: Alanine Aminotransferase 24 U/L (0-33); Albumin Level 3.7 g/dL (3.5-5.2); Alkaline Phosphatase 74 IU/L (35-105); Blood Urea Nitrogen 11 mg/dL (6-20); Calcium 9.8 mg/dL (8.5-10.5); Carbon Dioxide 20 mmol/L (22-29); Chloride 102 mmol/L (98-107); Globulin 3.2 g/dL (1.3-4.6); Glomerular Filtration Rate 103.7 mL/min (90-130); Glucose 95 mg/dL (65-115); Osmolality Calculated 277 mOsm/kg (285-295); Sodium 134 mmol/L (136-145); Total Bilirubin 0.4 mg/dL (0.15-1.2); Total Protein 6.9 g/dL (6.6-8.7)
[2021-02-05 00:35] LABS: Anion Gap 16.2 (5-19); Aspartate Amino Transferase 14 U/L (0-32); Potassium 4.2 mmol/L (3.5-5.1)
[2021-02-05 00:35] LABS: SARS Covid-2 Antigen Negative (Negative)
[2021-02-05] MEDS: sodium chloride 0.9% 1,000 ML 999 ML IV (00:40)
[2021-02-05 00:57] VITALS: BP 149/82; PULSE 93; RESP 16; O2SAT 97
[2021-02-05 01:26] VITALS: BP 149/82; PULSE 93; RESP 16; TEMP 37.4; O2SAT 97
== END 2021-02-05 01:27 | disposition home or self-care (01) ==
PROVIDERS: Emergency Provider Emergency Medicine; PCP Nurse Practitioner Family
DX: B34.9 Viral infection, unspecified (principal); F17.290 Nicotine dependence, other tobacco product, uncomplicated; Z20.822 Contact with and (suspected) exposure to COVID-19
CPT/HCPCS: 71045; 80053; 81001; 85025; 87426; 96360; 99284; J7030

== ENCOUNTER → 2021-02-10 15:47 | Outpatient (BNVA) | payer BC, SELFPAY | PROVIDERS: PCP Nurse Practitioner Family; Visit Provider Nurse Practitioner Family | DX: N30.20 Other chronic cystitis without hematuria (principal) | CPT/HCPCS: 81003; 87086 ==

== ENCOUNTER → 2021-08-27 16:18 | Outpatient (BNVA) | payer BC, SELFPAY | PROVIDERS: PCP Nurse Practitioner Family; Visit Provider Registered Nurse Neonatal Intensive Care | DX: R05.9 Cough, unspecified (principal); H66.92 Otitis media, unspecified, left ear | CPT/HCPCS: 87880 ==

== ENCOUNTER 2021-09-30 13:57 | Emergency (ER) | payer BC, SELFPAY ==
[2021-09-30 14:21] VITALS: BP 139/76; PULSE 65; RESP 16; TEMP 36.4; O2SAT 98; BMI 59.5
--- NOTE | 2021-09-30 14:56 | W.ED.ALLEREA ---
HPI - Allergic Reaction General: Chief complaint: Allergic Reaction Stated complaint: allergic rxn Time Seen by Provider: 09/30/21 14:49 Source: patient Mode of arrival: ambulatory Limitations: no limitations History of Present Illness: HPI narrative: Patient is a 26-year-old female who presents to ED today with a complaint of allergic reaction that started just a few hours after taking an oxycodone that she was prescribed recently following a wisdom tooth/molar extraction. Patient states she is having itchiness/hives. She does report feeling like it is a little difficult to swallow. She is not having any shortness of breath or difficulty breathing. No known previous allergic reaction history. MD complaint: allergic reaction and hives Onset (ago): hour(s) Exposure: medication Associated symptoms: Deny nausea or vomiting Severity: mild Treatment prior to arrival: none Previous Allergic Reaction History: none Review of Systems Const: Denies: fever(s), chills, body aches, fatigue or malaise Eyes: Denies: change in vision or blurry vision ENMT: Reports: other (reports difficulty swallowing); Denies: throat pain, uvular edema, enlarged tonsils, odynophagia or sinus pain Card: Denies: chest pain or palpitations Resp: Denies: dyspnea GI: Denies: nausea or vomiting Skin/Breast: Reports: rash and pruritus Neuro: Denies: headache(s) PFS ED PFSH: Medical History Chronic cystitis No pertinent past medical history neghx: htn,dm,thyroid,dvt/pe PCP: [facility] Recurrent UTI Tachycardia episodes-- managed with prn meds managed with Val [facility] Surgical History No pertinent past surgical history Family History Grandmother Breast cancer Paternal--dx age 40 Ovarian cancer Maternal-- dx age unknown Family/Other Diabetes Paternal side in general Mother Ovarian cancer dx age in 20's Sister Ovarian cancer Sister- x3 --- dx age 16 Sister--dx age 22 Sister dx age 22 Thyroid disease x2 Social History Smoking and tobacco status: former smoker Female Reproductive History: Date of last menstrual period: 09/25/21 Physical Exam Const: COMMON NORMALS: no acute distress, patient oriented x3, no limitations and alert GENERAL APPEARANCE: cooperative NUTRITIONAL APPEARANCE: obese morbidly obese ORIENTATION/CONSCIOUSNESS: Yes awake, Yes oriented to person, Yes oriented to place and Yes oriented to time HENMT: COMMON NORMALS: normocephalic and atraumatic HEAD & SCALP: normal to inspection, normocephalic and atraumatic MOUTH: lip normal, tongue normal and other (no angioedema noted) THROAT: no uvular edema Neck/C-Spine: GENERAL: Yes normal visual inspection, No anterior neck swelling and No submandibular swelling Resp: COMMON NORMALS: normal respiratory effort and clear to auscultation bilaterally AUSCULTATION: clear to auscultation bilaterally Cardio: COMMON NORMALS: regular rate and regular rhythm RATE: regular rate RHYTHM: regular rhythm Extremity: COMMON NORMALS: normal to inspection GENERAL: Yes normal exam except as noted Neuro: NATHALIE COMA SCALE: document GCS findings Nathalie coma scale eye opening: Spontaneous [place] coma scale verbal response: Orientated [place] coma scale motor response: Obey commands Nathalie coma scale total score: 15 COMMON NORMALS: patient oriented x3, moves all extremities, no focal motor deficits and no sensory deficits noted SENSORIUM/ORIENTATION: Yes alert, Yes oriented to person, Yes oriented to place and Yes oriented to time Skin: NARRATIVE SKIN EXAM: mild scattered urticaria Course Vital Signs: Vital signs: Vital Signs Temperature 97.6 F 09/30/21 14:21 Pulse Rate 104 H 09/30/21 16:05 Respiratory Rate 18 09/30/21 16:05 Blood Pressure 139/76 09/30/21 14:21 Pulse Oximetry 100 09/30/21 16:05 MDM - Allergic Reaction Medical Decision Making Patient clinically appears in no acute distress. She was given IM Benadryl and Solu-Medrol and watched for well over an hour here in the ED. Re-assessment of patient reveals her urticaria has improved. She states pruritus has resolved. She is no longer having any difficulty breathing or swallowing. Recommend she continue to monitor symptoms closely at home. She may continue Benadryl every 4-6 hours. Strict return ED precautions verbally given. Recommend discontinuation of Oxycodone. She has had Tylenol previously without reactions. Recommend Tylenol and/or Motrin as needed for her discomfort. Discharge Plan Discharge Patient Disposition: Home Clinical Impression: Allergic reaction to drug Qualifiers: Encounter type: initial encounter Qualified Code(s): T78.40XA - Allergy, unspecified, initial encounter Condition: Stable Prescriptions: No Action prazosin 5 mg capsule 5 mg PO .HS Qty: 30 2RF propranolol 20 mg tablet 20 mg PO BID PRN (Reason: anxiety) Qty: 60 2RF sertraline [Zoloft] 100 mg tablet 100 mg PO DAILY Qty: 30 2RF trazodone 50 mg tablet 100 mg PO .HS PRN (Reason: insomnia) Qty: 60 2RF levonorgestrel-ethinyl estrad [Levora-28] 0.15-0.03 mg tablet 1 tab PO DAILY Qty: 28 0RF valacyclovir 1 gram tablet 1,000 mg PO TID 7 Days Qty: 21 0RF amoxicillin 875 mg tablet 875 mg PO BID 10 Days Qty: 20 0RF ondansetron 4 mg tablet,disintegrating 4 mg PO Q6H PRN (Reason: nausea and vomiting) Qty: 14 0RF Naprosyn 500 mg tablet 500 mg PO BID PRN (Reason: pain) Qty: 20 0RF Discharge Orders: Discharge ED (Routine); Ordered 09/30/21 Ordered By: Michelle Galicia Referrals: Val Cain FNP [Primary Care Provider] - Patient Instructions: Allergic Reaction Coding Level of Care Code ED [employer] 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
[2021-09-30] MEDS: diphenhydrAMINE 50 mg/mL SDV 1mL IM (15:13)
[2021-09-30 16:05] VITALS: PULSE 104; RESP 18; O2SAT 100
== END 2021-09-30 16:06 | disposition home or self-care (01) ==
PROVIDERS: Emergency Provider Physician Assistant; PCP Nurse Practitioner Family
DX: T78.40XA Allergy, unspecified, initial encounter (principal)
CPT/HCPCS: 96372; 99283; J1200; J2930

== ENCOUNTER → 2022-01-01 10:55 | Outpatient (BNVA) | payer OTHER, MEDICAID, SELFPAY | PROVIDERS: Visit Provider Physician Assistant | DX: M41.24 Other idiopathic scoliosis, thoracic region (principal) | CPT/HCPCS: 72072 ==

== ENCOUNTER → 2022-01-08 12:29 | Outpatient (BNVA) | payer MEDICAID, SELFPAY | PROVIDERS: Visit Provider Family Medicine | DX: R05.9 Cough, unspecified (principal); J02.9 Acute pharyngitis, unspecified; Z20.822 Contact with and (suspected) exposure to COVID-19 | CPT/HCPCS: 80053; 80061; 83036; 84443; 85025; 87426; 87880 ==

== ENCOUNTER 2022-01-14 06:00 | Outpatient (RCR) | payer OTHER, MEDICAID, SELFPAY | END 2022-01-23 23:59 | disposition home or self-care (01) | LOC: SPT 06:00 | PROVIDERS: Visit Provider Physician Assistant | DX: M54.6 Pain in thoracic spine (principal); M54.50 Low back pain, unspecified | CPT/HCPCS: 97110; 97161 ==

== ENCOUNTER 2022-01-24 06:00 | Outpatient (RCR) | payer OTHER, MEDICAID, SELFPAY | END 2022-02-23 23:59 | disposition home or self-care (01) | LOC: SPT 06:00 | PROVIDERS: Visit Provider Physician Assistant | DX: M54.6 Pain in thoracic spine (principal); M54.50 Low back pain, unspecified | CPT/HCPCS: 97110 ==

== ENCOUNTER 2022-03-26 15:33 | Outpatient (CLI) | payer OTHER, MEDICAID, SELFPAY ==
--- NOTE | 2022-03-26 16:00 | MR_ITS ---
WS: [id number] MRI THORACIC SPINE without contrast HISTORY: Scoliosis with back pain. Bilateral upper extremity numbness. COMPARISON: Thoracic spine radiograph 01/01/2022. TECHNIQUE: Multiplanar sequences are performed in sagittal and axial planes. Moderate dextrorotary scoliosis no thoracic vertebral body fractures. There is no marrow edema or ret ropulsion. Normal signal within the cord. Thoracic cord is asymmetrically placed within the thecal sac due to the scoliosis. No compression. T1-2: Normal. T2-3: Normal. T3-4: Normal. T4-5: Normal. T5-6: Minimal facet arthritis. T6-7: Normal. T7-8: Normal. T8-9: Normal. T9-10: Mild bilateral facet arthritis. T10-11: Mild facet arthritis. T11-12: Mild facet arthritis. Paravertebral soft tissues are normal. MR/MR thoracic spin wo con* [id number] IMPRESSION: 1. Moderate RIGHT curvature thoracic spine for scoliosis. 2. No cord compression or fractures. 3. No vertebral body anomalies. No high-grade stenosis or disc protrusion.
== END 2022-03-26 15:34 | disposition home or self-care (01) ==
LOC: RAD 15:38
PROVIDERS: PCP Family Medicine; Visit Provider Physician Assistant
DX: M54.6 Pain in thoracic spine (principal); M41.20 Other idiopathic scoliosis, site unspecified
CPT/HCPCS: 72146

== ENCOUNTER → 2022-05-22 10:26 | Outpatient (BNVA) | payer OTHER, MEDICAID, SELFPAY | PROVIDERS: PCP Family Medicine; Visit Provider Nurse Practitioner Family | DX: M25.561 Pain in right knee (principal); E66.01 Morbid (severe) obesity due to excess calories; Z68.43 Body mass index [BMI] 50.0-59.9, adult | CPT/HCPCS: 73560; 73565 ==

== ENCOUNTER 2022-06-29 08:38 | Outpatient (CLI) | payer OTHER, MEDICAID, SELFPAY ==
--- NOTE | 2022-06-29 08:45 | MR_ITS ---
WS: [id number] MRI RIGHT KNEE HISTORY: Pain, patient fell 2 months ago. Instability. COMPARISON: Radiograph 05/22/2022 Anterior cruciate ligament: Increased T2 signal throughout the ACL. No full-thickness tear. Loss of t he normal fibers in the posterior medial bundle of the ACL. No significant thickening of the ligament . Posterior cruciate ligament: Intact. Medial collateral ligament: Intact. Posterior lateral corner structures: Intact. Medial menisci: Intact. Normal signal, size and shape. Lateral meniscus: Intact. Normal signal, size and shape. Extensor mechanism: Distal quadriceps tendon and patellar tendons are intact. Fluid and soft tissue: No joint effusion. No Guadarrama's cyst. Osseous and articular structures: Patellofemoral compartment: Normal. Medial compartment: Normal. Lateral compartment: Normal. MR/MR knee RT wo con* [id number] IMPRESSION: 1. Thickening and abnormal signal of the ACL. Loss of the normal bundle of the posterior medial ACL. Suspect minimal injury. Majority of the ACL remains inta ct. 2. Otherwise negative MRI knee.
== END 2022-06-29 08:39 | disposition home or self-care (01) ==
PROVIDERS: PCP Family Medicine; Visit Provider Nurse Practitioner Family
DX: M23.51 Chronic instability of knee, right knee (principal)
CPT/HCPCS: 73721

== ENCOUNTER → 2022-10-06 11:25 | Outpatient (BNVA) | payer OTHER, MEDICAID, SELFPAY | PROVIDERS: PCP Family Medicine; Visit Provider Registered Nurse Neonatal Intensive Care | DX: R50.9 Fever, unspecified (principal) | CPT/HCPCS: 87426 ==